=== PATIENT | female | born 1965 | race Caucasian/White ===

== ENCOUNTER → 2021-03-18 10:56 | Outpatient (BNVA) | payer OTHER, SELFPAY | PROVIDERS: PCP Internal Medicine; Visit Provider Internal Medicine Pulmonary Disease | DX: D86.9 Sarcoidosis, unspecified (principal); J45.909 Unspecified asthma, uncomplicated | CPT/HCPCS: 99202 ==

== ENCOUNTER 2021-03-26 09:29 | Outpatient (REF) | payer OTHER, SELFPAY ==
[2021-03-26 10:52] LABS: Alanine Aminotransferase 32 U/L (0-31); Albumin Level 4.2 g/dL (3.5-5.0); Alkaline Phosphatase 134 U/L (39-117); Anion Gap 12 (12-20); Aspartate Amino Transferase 20 U/L (5-31); Bilirubin Total 0.4 mg/dL (0.0-1.0); Blood Urea Nitrogen 10 mg/dL (9-16); Calcium 9.5 mg/dL (8.4-10.2); Carbon Dioxide 26 mmol/L (22-29); Chloride 102 mmol/L (96-108); Estimated Glomerular Filt Rate 51; Glucose Random 254 mg/dL (60-115); Potassium 3.9 mmol/L (3.3-5.1); Sodium 136 mmol/L (135-145)
--- NOTE | 2021-03-26 17:38 | PFT_ITS ---
INDICATION: Dyspnea. SPIROMETRY: FEV1 to FVC 86% with an FEV1 of 2.80 L, which is 99% predicted, and an FVC of 3.27 L, which is 90% predicted. No significant response to bronchodilators noted. Maximum voluntary ventilation 104% predicted. LUNG VOLUMES: Total lung capacity 103% predicted and the expiratory reserve volume of 90% predicted. DIFFUSION CAPACITY: DLCO 72% predicted. COMPARISONS: None. INTERPRETATION: No obstructive nor restrictive ventilatory defects identified. No significant response to bronchodilators noted. Normal maximum voluntary ventilation. Lung volumes are normal except for decrease in the expiratory reserve volume secondary to an elevated BMI. There is also a mild diffusion impairment. Otherwise, should correct for hemoglobin. Clinical correlation warranted. Brent Young MD MR/MODL / [id number]
== END 2021-03-26 09:30 | disposition home or self-care (01) ==
LOC: HO.RESP 09:29
PROVIDERS: PCP Internal Medicine; Visit Provider Internal Medicine Pulmonary Disease
DX: J45.909 Unspecified asthma, uncomplicated (principal); D86.9 Sarcoidosis, unspecified
CPT/HCPCS: 36415; 80053; 94060; 94727; 94729

== ENCOUNTER → 2021-04-16 10:40 | Outpatient (BNVA) | payer OTHER, SELFPAY | PROVIDERS: PCP Internal Medicine; Visit Provider Internal Medicine Pulmonary Disease | DX: D86.9 Sarcoidosis, unspecified (principal); J45.909 Unspecified asthma, uncomplicated | CPT/HCPCS: 99212 ==

== ENCOUNTER → 2021-09-29 10:10 | Outpatient (BNVA) | payer OTHER, SELFPAY | PROVIDERS: PCP Internal Medicine; Visit Provider Internal Medicine Pulmonary Disease | DX: J45.909 Unspecified asthma, uncomplicated (principal); D86.9 Sarcoidosis, unspecified | CPT/HCPCS: 99212 ==

== ENCOUNTER 2022-03-26 13:43 | Outpatient (REF) | payer OTHER, SELFPAY ==
[2022-03-26 15:47] LABS: Alanine Aminotransferase 64 U/L (0-31); Albumin Level 4.4 g/dL (3.5-5.0); Alkaline Phosphatase 188 U/L (39-117); Anion Gap 18 (12-20); Aspartate Amino Transferase 36 U/L (5-31); Bilirubin Total 0.3 mg/dL (0.0-1.0); Blood Urea Nitrogen 15 mg/dL (9-16); Calcium 9.8 mg/dL (8.4-10.2); Carbon Dioxide 20 mmol/L (22-29); Chloride 103 mmol/L (96-108); Estimated Glomerular Filt Rate 47; Glucose Random 373 mg/dL (60-115); Potassium 4.4 mmol/L (3.3-5.1); Sodium 137 mmol/L (135-145); Total Protein 7.2 g/dL (6.5-8.0)
== END 2022-03-26 13:44 | disposition home or self-care (01) ==
LOC: HO.LAB 13:43
PROVIDERS: Visit Provider Internal Medicine Pulmonary Disease
DX: D86.9 Sarcoidosis, unspecified (principal)
CPT/HCPCS: 36415; 80053

== ENCOUNTER → 2022-04-26 11:40 | Outpatient (BNVA) | payer OTHER, SELFPAY | PROVIDERS: PCP Internal Medicine; Visit Provider Internal Medicine Pulmonary Disease | DX: D86.9 Sarcoidosis, unspecified (principal); J45.909 Unspecified asthma, uncomplicated; J30.9 Allergic rhinitis, unspecified; Z79.899 Other long term (current) drug therapy | CPT/HCPCS: 99212 ==

== ENCOUNTER 2022-05-03 13:53 | Outpatient (REF) | payer OTHER, SELFPAY | END 2022-05-03 13:54 | disposition home or self-care (01) | LOC: HO.XRAY 13:53 | PROVIDERS: PCP Internal Medicine; Visit Provider Internal Medicine Pulmonary Disease | DX: S29.8XXA Other specified injuries of thorax, initial encounter (principal) | CPT/HCPCS: 71101 ==

== ENCOUNTER → 2022-09-22 15:33 | Outpatient (BNVA) | payer OTHER, SELFPAY | PROVIDERS: PCP Internal Medicine; Visit Provider Internal Medicine Pulmonary Disease | DX: D86.9 Sarcoidosis, unspecified (principal); J45.909 Unspecified asthma, uncomplicated | CPT/HCPCS: 99212 ==

== ENCOUNTER 2023-01-25 11:18 | Outpatient (AMB) | payer OTHER, SELFPAY ==
[2023-01-25 11:29] VITALS: BP 110/82; PULSE 93; O2SAT 96; BMI 32.0
--- NOTE | 2023-01-25 11:29 | MHC.OFFVIS ---
Intake Vital Signs 01/25/23 11:29 Height 5 ft 6 in Weight 198 lb 6.656 oz BMI 32.0 BP 110/82 Blood Pressure Location Lt brachial Position Sitting Pulse 93 Pulse Source Doppler Pulse Oximetry (%) 96 Oxygen Delivery Method Room Air Intake Visit Reasons: Sarcoidosis Allergies onion Allergy (Unknown, Verified 01/25/23 11:32) Unknown HPI Sarcoidosis HPI Details 57-year-old lady with underlying history of asthma previously seen by Dr. Murry, now followed for recent diagnosis of sarcoidosis on mediastinoscopy and mediastinal lymph node biopsy.? Patient continues on Breo Spiriva and albuterol MDI with good control of underlying symptoms. She denies recent exacerbations. She does complain bronchitic symptoms for the last 3 days symptomatic with cough productive of mucus. Review of Systems Const Denies daytime sleepiness, Denies excessive sweating, Denies fatigue, Denies fever(s), Denies lethargy, Denies malaise, Denies night sweats, Denies snoring and Denies weight loss Eyes Denies blurry vision and Denies itchy eyes ENT Denies nasal congestion, Denies post nasal drip, Denies sinus pain, Denies sinus pressure and Denies other ( Thrush) Card Denies chest pain, Denies pedal edema, Denies dyspnea, Denies orthopnea and Denies paroxysmal nocturnal dyspnea Resp Reports cough, Denies hemoptysis, Reports excessive phlegm production, Denies dyspnea, Denies snoring and Denies wheezing GI Denies abdominal pain and Denies heartburn Musc Denies myalgias, Denies arthralgias and Denies joint swelling Skin/Breast Denies rash Neuro Denies memory loss and Denies seizure-like activity Psych Denies abnormal sleep pattern, Denies anxiety and Denies memory loss Endo Denies excessive sweating, Denies fatigue and Denies heat intolerance Nacho/Lymph Denies easy bruising Aller/Immun Denies itchy eyes, Denies seasonal rhinorrhea and Denies wheezing Physical Exam Vital Signs: Last Vital Signs Pulse 93 01/25/23 11:29 BP 110/82 01/25/23 11:29 Pulse Ox 96 01/25/23 11:29 Oxygen Delivery Method Room Air 01/25/23 11:29 BMI result Body Mass Index 32.0 Const General: no acute distress and alert Nutritional Appearance: not obese Orientation/consciousness: Other orientation findings ( oriented) HEENT Head: Yes atraumatic Eyes General: appearance normal, both eyes and all related structures Sclerae: sclerae normal EOM: EOMs intact bilaterally Neck Neck: Yes supple Lymphatic: no lymphadenopathy noted Resp Effort & Inspection: normal respiratory effort and no use of accessory muscles Auscultation: clear to auscultation bilaterally Cardio Rate: regular rate Rhythm: regular rhythm Heart sounds: no gallops, no murmurs and no rubs Skin General skin exam: other ( warm) Extrem General: No clubbing, No cyanosis and No edema Assessment & Plan Assessment & Plan (1) Sarcoidosis: Code(s): D86.9 - Sarcoidosis, unspecified Plan: No recent exacerbations. Will obtain baseline laboratory studies. (2) Asthma: Code(s): J45.909 - Unspecified asthma, uncomplicated Plan: Well controlled on Breo, Spiriva, and albuterol MDI. Continue current regimen. Orders: Orders Liver Panel Today D86.9 - Sarcoidosis, unspecified Basic Metabolic Panel Today D86.9 - Sarcoidosis, unspecified Coding Level of Care Code Est Pt Level 4 (05752) Diagnoses Sarcoidosis D86.9 Asthma J45.909
== END 2023-01-25 11:49 | disposition home or self-care (01) ==
PROVIDERS: PCP Internal Medicine; Visit Provider Internal Medicine Pulmonary Disease
DX: D86.9 Sarcoidosis, unspecified (principal); J45.909 Unspecified asthma, uncomplicated
CPT/HCPCS: 99214

== ENCOUNTER → 2023-01-25 11:18 | Outpatient (BNVA) | payer OTHER, SELFPAY | PROVIDERS: PCP Internal Medicine; Visit Provider Internal Medicine Pulmonary Disease | DX: D86.9 Sarcoidosis, unspecified (principal); J45.909 Unspecified asthma, uncomplicated; Z79.899 Other long term (current) drug therapy | CPT/HCPCS: 99212 ==

== ENCOUNTER 2023-06-28 11:37 | Outpatient (REF) | payer OTHER, SELFPAY ==
[2023-06-28 12:43] LABS: Alanine Aminotransferase 34 U/L (0-31); Albumin Level 4.3 g/dL (3.5-5.0); Alkaline Phosphatase 129 U/L (39-117); Anion Gap 14 (12-20); Aspartate Amino Transferase 21 U/L (5-31); Bilirubin Direct 0.2 mg/dL (0.0-0.5); Bilirubin Total 0.4 mg/dL (0.0-1.0); Blood Urea Nitrogen 9 mg/dL (9-16); Calcium 10.6 mg/dL (8.4-10.2); Carbon Dioxide 22 mmol/L (22-29); Chloride 108 mmol/L (96-108); Estimated Glomerular Filt Rate > 60; Glucose Random 260 mg/dL (60-115); Potassium 4.2 mmol/L (3.3-5.1); Sodium 140 mmol/L (135-145); Total Protein 7.4 g/dL (6.5-8.0)
== END 2023-06-28 11:38 | disposition home or self-care (01) ==
LOC: HO.LAB 11:37
PROVIDERS: PCP Internal Medicine; Visit Provider Internal Medicine Pulmonary Disease
DX: D86.9 Sarcoidosis, unspecified (principal)
CPT/HCPCS: 36415; 80048; 80076

== ENCOUNTER 2023-07-29 10:54 | Outpatient (REF) | payer OTHER, SELFPAY ==
[2023-07-29 12:56] LABS: Anion Gap 13 (12-20); Blood Urea Nitrogen 10 mg/dL (9-16); Calcium 9.4 mg/dL (8.4-10.2); Carbon Dioxide 23 mmol/L (22-29); Chloride 109 mmol/L (96-108); Estimated Glomerular Filt Rate > 60; Glucose Random 214 mg/dL (60-115); Potassium 3.8 mmol/L (3.3-5.1); Sodium 141 mmol/L (135-145)
== END 2023-07-29 10:55 | disposition home or self-care (01) ==
LOC: HO.LAB 10:54
PROVIDERS: PCP Internal Medicine; Visit Provider Internal Medicine Pulmonary Disease
DX: D86.9 Sarcoidosis, unspecified (principal); J30.9 Allergic rhinitis, unspecified; J45.909 Unspecified asthma, uncomplicated
CPT/HCPCS: 36415; 80048; 99212

== ENCOUNTER 2023-07-29 10:54 | Outpatient (AMB) | payer OTHER, SELFPAY ==
[2023-07-29 10:57] VITALS: BP 111/77; PULSE 101; O2SAT 86; BMI 31.6
--- NOTE | 2023-07-29 10:57 | MHC.OFFVIS ---
Intake Vital Signs 07/29/23 10:57 Height 5 ft 6 in Weight 196 lb BMI 31.6 BP 111/77 Blood Pressure Location Rt brachial Position Sitting Pulse 101 H Pulse Source Doppler Pulse Oximetry (%) 86 L Oxygen Delivery Method Room Air Intake Visit Reasons: Sarcoidosis Allergies onion Allergy (Unknown, Verified 07/29/23 11:02) Unknown HPI Sarcoidosis HPI Details 57-year-old lady with underlying history of asthma previously seen by Dr. Murry, now followed for recent diagnosis of sarcoidosis on mediastinoscopy and mediastinal lymph node biopsy.? Patient continues on Breo, Spiriva, and albuterol MDI with good control of underlying symptoms. On her last BNP her calcium is slightly elevated. She is also complaining of mild bronchitic symptoms. Review of Systems Const Denies daytime sleepiness, Denies excessive sweating, Denies fatigue, Denies fever(s), Denies lethargy, Denies malaise, Denies night sweats, Denies snoring and Denies weight loss Eyes Denies blurry vision and Denies itchy eyes ENT Denies nasal congestion, Denies post nasal drip, Denies sinus pain, Denies sinus pressure and Denies other ( Thrush) Card Denies chest pain, Denies pedal edema, Denies dyspnea, Denies orthopnea and Denies paroxysmal nocturnal dyspnea Resp Reports cough, Denies hemoptysis, Reports excessive phlegm production, Denies dyspnea, Denies snoring and Denies wheezing GI Denies abdominal pain and Denies heartburn Musc Denies myalgias, Denies arthralgias and Denies joint swelling Skin/Breast Denies rash Neuro Denies memory loss and Denies seizure-like activity Psych Denies abnormal sleep pattern, Denies anxiety and Denies memory loss Endo Denies excessive sweating, Denies fatigue and Denies heat intolerance Nacho/Lymph Denies easy bruising Aller/Immun Denies itchy eyes, Denies seasonal rhinorrhea and Denies wheezing Physical Exam Vital Signs: Last Vital Signs Pulse 101 H 07/29/23 10:57 BP 111/77 07/29/23 10:57 Pulse Ox 86 L 07/29/23 10:57 Oxygen Delivery Method Room Air 07/29/23 10:57 BMI result Body Mass Index 31.6 Const General: no acute distress and alert Nutritional Appearance: not obese Orientation/consciousness: Other orientation findings ( oriented) HEENT Head: Yes atraumatic Eyes General: appearance normal, both eyes and all related structures Sclerae: sclerae normal EOM: EOMs intact bilaterally Neck Neck: Yes supple Lymphatic: no lymphadenopathy noted Resp Effort & Inspection: normal respiratory effort and no use of accessory muscles Auscultation: clear to auscultation bilaterally Cardio Rate: regular rate Rhythm: regular rhythm Heart sounds: no gallops, no murmurs and no rubs Skin General skin exam: other ( warm) Extrem General: No clubbing, No cyanosis and No edema Assessment & Plan Assessment & Plan (1) Asthma: Code(s): J45.909 - Unspecified asthma, uncomplicated Plan: Baseline well controlled on Breo, Spiriva, and albuterol MDI. Continue current regimen. Will treat bronchitic symptoms with a course of azithromycin. (2) Sarcoidosis: Code(s): D86.9 - Sarcoidosis, unspecified Plan: Mildly elevated calcium on last BMP. Will repeat BMP, if still elevated, will consider prednisone course. (3) Allergic rhinitis: Code(s): J30.9 - Allergic rhinitis, unspecified Plan: No recent exacerbations. Continue on as needed Flonase. Orders: Orders Basic Metabolic Panel Today D86.9 - Sarcoidosis, unspecified Medications: New azithromycin For 250 mg dose pack: take 500 mg today (day 1), then 250 mg for 4 days (days 2-5) PO 6 tabs 0RF D86.9 - Sarcoidosis, unspecified Discontinued azithromycin Discontinued Reason: Doctor's Order For 250 mg dose pack: take 500 mg today (day 1), then 250 mg for 4 days (days 2-5) PO 6 tabs 0RF D86.9 - Sarcoidosis, unspecified Coding Level of Care Code Est Pt Level 4 (38609) Diagnoses Asthma J45.909 Sarcoidosis D86.9 Allergic rhinitis J30.9
== END 2023-07-29 11:19 | disposition home or self-care (01) ==
PROVIDERS: PCP Internal Medicine; Visit Provider Internal Medicine Pulmonary Disease
DX: J45.909 Unspecified asthma, uncomplicated (principal); D86.9 Sarcoidosis, unspecified; J30.9 Allergic rhinitis, unspecified
CPT/HCPCS: 99214

== ENCOUNTER 2023-12-07 11:02 | Outpatient (AMB) | payer OTHER, SELFPAY ==
[2023-12-07 11:04] VITALS: BP 108/78; PULSE 85; O2SAT 98; BMI 30.7
--- NOTE | 2023-12-07 11:04 | MHC.OFFVIS ---
Vital Signs 12/07/23 11:04 Height 5 ft 6 in Weight 190 lb 0.108 oz BMI 30.7 BP 108/78 Blood Pressure Location Lt brachial Position Sitting Pulse 85 Pulse Source Doppler Pulse Oximetry (%) 98 Oxygen Delivery Method Room Air Intake Visit Reasons: Sarcoidosis Allergies onion Allergy (Unknown, Verified 07/29/23 11:02) Unknown HPI HPI Sarcoidosis: Details: 58-year-old lady with underlying history of asthma previously seen by Dr. Murry, now followed for diagnosis of sarcoidosis on mediastinoscopy and mediastinal lymph node biopsy.? Patient continues on Breo, Spiriva, and albuterol MDI with good control of underlying symptoms. On her last BNP her calcium is slightly elevated, however did came down on the repeat testing. She is denying any acute exacerbations. Review of Systems Const Denies daytime sleepiness, Denies excessive sweating, Denies fatigue, Denies fever(s), Denies lethargy, Denies malaise, Denies night sweats, Denies snoring and Denies weight loss Eyes Denies blurry vision and Denies itchy eyes ENT Denies nasal congestion, Denies post nasal drip, Denies sinus pain, Denies sinus pressure and Denies other ( Thrush) Card Denies chest pain, Denies pedal edema, Denies dyspnea, Denies orthopnea and Denies paroxysmal nocturnal dyspnea Resp Denies cough, Denies hemoptysis, Denies excessive phlegm production, Denies dyspnea, Denies snoring and Denies wheezing GI Denies heartburn Musc Denies myalgias, Denies arthralgias and Denies joint swelling Skin/Breast Denies rash Neuro Denies memory loss and Denies seizure-like activity Psych Denies abnormal sleep pattern, Denies anxiety and Denies memory loss Endo Denies excessive sweating, Denies fatigue and Denies heat intolerance Nacho/Lymph Denies easy bruising Aller/Immun Denies itchy eyes, Denies seasonal rhinorrhea and Denies wheezing Physical Exam Vital Signs: Last Vital Signs Pulse 85 12/07/23 11:04 BP 108/78 12/07/23 11:04 Pulse Ox 98 12/07/23 11:04 Oxygen Delivery Method Room Air 12/07/23 11:04 BMI result Body Mass Index 30.7 Const General: no acute distress and alert Nutritional Appearance: not obese Orientation/consciousness: Other orientation findings ( oriented) HEENT Head: Yes atraumatic Eyes General: appearance normal, both eyes and all related structures Sclerae: sclerae normal EOM: EOMs intact bilaterally Neck Neck: Yes supple Lymphatic: no lymphadenopathy noted Resp Effort & Inspection: normal respiratory effort and no use of accessory muscles Auscultation: clear to auscultation bilaterally Cardio Rate: regular rate Rhythm: regular rhythm Heart sounds: no gallops, no murmurs and no rubs Skin General skin exam: other ( warm) Extrem General: No clubbing, No cyanosis and No edema Assessment & Plan Assessment & Plan (1) Asthma: Code(s): J45.909 - Unspecified asthma, uncomplicated Category: Medical Plan: Well controlled on Breo, Spiriva, and albuterol MDI. Continue current regimen. (2) Sarcoidosis: Code(s): D86.9 - Sarcoidosis, unspecified Category: Medical Plan: Initially elevated calcium rechecked and repeat value is normal. Continue to monitor clinically. Coding Level of Care Code Est Pt Level 4 (65498) Diagnoses Asthma J45.909 Sarcoidosis D86.9
== END 2023-12-07 11:28 | disposition home or self-care (01) ==
PROVIDERS: PCP Internal Medicine; Visit Provider Internal Medicine Pulmonary Disease
DX: J45.909 Unspecified asthma, uncomplicated (principal); D86.9 Sarcoidosis, unspecified
CPT/HCPCS: 99214

== ENCOUNTER → 2023-12-07 11:02 | Outpatient (BNVA) | payer OTHER, SELFPAY | PROVIDERS: PCP Internal Medicine; Visit Provider Internal Medicine Pulmonary Disease | DX: J45.909 Unspecified asthma, uncomplicated (principal); D86.9 Sarcoidosis, unspecified | CPT/HCPCS: 99212 ==

== ENCOUNTER 2024-06-12 10:48 | Outpatient (AMB) | payer MEDICAID, SELFPAY ==
[2024-06-12 10:57] VITALS: BP 98/60; PULSE 88; O2SAT 95; BMI 32.9
--- NOTE | 2024-06-12 10:57 | MHC.OFFVIS ---
Vital Signs 06/12/24 10:57 Height 5 ft 6 in Weight 204 lb 2.115 oz BMI 32.9 BP 98/60 Blood Pressure Location Rt brachial Position Sitting Pulse 88 Pulse Source Doppler Pulse Oximetry (%) 95 Oxygen Delivery Method Room Air Intake Visit Reasons: Sarcoidosis Allergies onion Allergy (Unknown, Verified 06/12/24 11:05) Unknown HPI HPI Sarcoidosis: Details: 58-year-old lady with underlying history of asthma previously seen by Dr. Murry, now followed for diagnosis of sarcoidosis on mediastinoscopy and mediastinal lymph node biopsy.? Patient continues on Breo, Spiriva, and albuterol MDI with good control of underlying symptoms. Patient denies recent exacerbations. Review of Systems Const Denies daytime sleepiness, Denies excessive sweating, Denies fatigue, Denies fever(s), Denies lethargy, Denies malaise, Denies night sweats, Denies snoring and Denies weight loss Eyes Denies blurry vision and Denies itchy eyes ENT Denies nasal congestion, Denies post nasal drip, Denies sinus pain, Denies sinus pressure and Denies other ( Thrush) Card Denies chest pain, Denies pedal edema, Denies dyspnea, Denies orthopnea and Denies paroxysmal nocturnal dyspnea Resp Denies cough, Denies hemoptysis, Denies excessive phlegm production, Denies dyspnea, Denies snoring and Denies wheezing GI Denies abdominal pain and Denies heartburn Musc Denies myalgias, Denies arthralgias and Denies joint swelling Skin/Breast Denies rash Neuro Denies memory loss and Denies seizure-like activity Psych Denies abnormal sleep pattern, Denies anxiety and Denies memory loss Endo Denies excessive sweating, Denies fatigue and Denies heat intolerance Nacho/Lymph Denies easy bruising Aller/Immun Denies itchy eyes, Denies seasonal rhinorrhea and Denies wheezing Physical Exam Vital Signs: Last Vital Signs Pulse 88 06/12/24 10:57 BP 98/60 06/12/24 10:57 Pulse Ox 95 06/12/24 10:57 Oxygen Delivery Method Room Air 06/12/24 10:57 BMI result Body Mass Index 32.9 Const General: no acute distress and alert Nutritional Appearance: obese Orientation/consciousness: Other orientation findings ( oriented) HEENT Head: Yes atraumatic Eyes General: appearance normal, both eyes and all related structures Sclerae: sclerae normal EOM: EOMs intact bilaterally Neck Neck: Yes supple Lymphatic: no lymphadenopathy noted Resp Effort & Inspection: normal respiratory effort and no use of accessory muscles Auscultation: clear to auscultation bilaterally Cardio Rate: regular rate Rhythm: regular rhythm Heart sounds: no gallops, no murmurs and no rubs Skin General skin exam: other ( warm) Extrem General: No clubbing, No cyanosis and No edema Assessment & Plan Assessment & Plan (1) Asthma: Code(s): J45.909 - Unspecified asthma, uncomplicated Category: Medical Plan: Well controlled on current regimen Spiriva, Breo, and albuterol MDI. Continue current regimen. (2) Sarcoidosis: Code(s): D86.9 - Sarcoidosis, unspecified Category: Medical Plan: Hypercalcemia resolved, otherwise clinically asymptomatic. Continue to monitor clinically. Coding Level of Care Code Est Pt Level 4 (96478) Diagnoses Asthma J45.909 Sarcoidosis D86.9
--- OUTSIDE RECORDS SUMMARY | 2024-06-12 11:55 | XMS_ITS | Data Portability ---
Author Organization [facility] [employer] [facility], Main Office Address [address] [place] [address] Care Team Providers Care Twisting Frame Fixer Name Role Phone [facility] OTHER Assessment No assessment recorded. Plan of Treatment Reminders Order Date Submit Date Provider Last Modified By Organization Details Last Modified Time Details Appointments None record ed. Lab None record ed. Referral None record ed. Procedures None record ed. Surgeries None record ed. Imaging None record ed. Medication Orders None record ed. Patient TargetsNo targets recorded. Patient InstructionsNo instructions recorded. Reason for Referral None Reported. Problems Name Problem SNOMED Code Status Onset Date Resolution Date Notes Provider Name and Address Organization Details Recorded Time Chronic obstructiv e pulmonary disease 20479650 Active 2024 CHAKA BELTRE [address] , [address], [place], [address] , [facility] [employer] [facility] 5 15:25:46 Asthma 348062979 Active 2024 CHAKA BELTRE [address], [place], [address] , [facility] [employer] 5 15:25:54 Diabetes mellitus 46039955 Active 2024 AURY DAS [facility] [address], [place], [address] , [facility] [employer] 5 15:26:12 Hyperlipid emia 32410244 Active 2024 [address] BEL[address]P [address], [place], [address] , [facility] [employer] 5 15:26:19 Neuropathy 494955562 Active 2024 CHAKA BELTRE [address], [place], [address] , [facility] 5 15:27:11 Essential tremor 833083160 Active 2024 CHAKA BELTRE [address], [address], [place], [address] , [facility] 5 15:27:41 Post-luz marina ectomy syndrome 76999973 Active 2024 CHAKA BELTRE [address], [address], [place], [address] , [facility] 5 15:29:52 Neuralgia 27398310 Active 2024 CHAKA BELTRE [address], [address], [place], [address] , [facility] 5 15:33:29 Mixed anxiety and depressive disorder 696647586 Active 2024 CHAKA BELTRE [address], [address], [place], [address] , [facility] 5 15:36:49 Diarrhea 19048597 Active 2023 Not Available [facility] 5 09:48:27 Recurrent major depression 82808027 Active 2023 Not Available [facility] 5 09:48:27 Type 2 diabetes mellitus without complicati on 531959813 Active 2023 Not Available [facility] 5 09:48:28 Anxiety disorder 918236706 Active 2023 Not Available [facility] 5 09:48:29 Obesity 941578129 Completed 202306/07/2024 Not Available [facility] 5 09:48:31 Primary insomnia 6170888 Active 2023 Not Available [facility] 5 09:48:31 Obesity 131772236 Active 2023 Not Available [facility] 5 09:48:32 Muscle weakness 49401745 Active 2023 Not Available [facility] 5 09:48:32 Difficulty walking 076877804 Active 2023 Not Available [facility] 5 09:48:32 Uncomplica charley asthma 588039277 Active 2023 Not Available [facility] 5 09:48:33 Disorder of nervous system due to type 2 diabetes mellitus 932515453 Active 2023 Not Available [facility] 5 09:48:33 Depressive disorder 78392012 Active 2023 Not Available [facility] 5 09:48:34 Disease caused by Coronaviri hermelinda 74931006 Active 2023 Not Available [facility] 5 09:48:35 Problem Notes None recorded. Medical Equipment None Reported. Allergies Allergen ID Allergen Name Allergen Category Reaction Reaction Severity Criticality Documentation Date Start Date Code Code System Note Provider Name and Address Organization Details Recorded Time [id number] 2824e onion extract food,medi cation Not available Not available Not available 05/25/2024 94519 69 RxNorm Not Available Not Available Not Available Medications Name Sig Start Date Stop Date Status Note LastModified by Organization Details LastModified Time atorvastati n 40 mg tablet Give 1 tablet by mouth one time a day 2023 active Not Available Not Available Not Avai lable primidone 50 mg tablet Give 1 tablet by mouth three times a day 2023 active Not Available Not Available Not Avai lable gabapentin 600 mg tablet Give 2 tablet by mouth three times a day for neuropath y give 2 tabs to equal 1200mg 2023 active Not Available Not Available Not Avai lable albuterol sulfate 1.25 mg/3 mL solution for nebulizatio n 1 vial inhale orally via nebulizer every 6 hours as needed for Wheeze 2023 active Not Available Not Available Not Avai lable clonazepam 0.5 mg tablet Give 1 tablet by mouth at bedtime May cause drowsines s, avoid alcohol 2024 active Not Available Not Available Not Avai lable Diphedryl Allergy 25 mg tablet Give 1 tablet by mouth every 24 hours as needed for ALLERGIES 2023 active Not Available Not Available Not Avai lable Non-Aspirin Extra Strength 500 mg tablet Give 2 tablet by mouth every 6 hours as needed for Mild Pain Do not exceed 3 grams in 24 hours.(To nicolette Dose 1000mg) AND Give 2 tablet by mouth every 6 hours as needed for Elevated Temperatu re > 100.1 Do not exceed 3 grams in 24 hours.(To nicolette Dose 1000mg) 2023 active Not Available Not Available Not Avai lable Lamictal 25 mg tablet Give 1 tablet by mouth two times a day for Depressio n 2024 active Not Available Not Available Not Avai lable Advil 200 mg tablet Give 2 tablet by mouth every 6 hours as needed for pain 2023 active Not Available Not Available Not Avai lable albuterol sulfate HFA 90 mcg/actuati on aerosol inhaler 2 puff inhale orally every 4 hours as needed for Bronchosp asm 1 DOSE ONLY 06/04 completed Not Available Not Available Not Available Wellbutrin XL 300 mg 24 hr tablet, extended release Give 300 mg by mouth one time a day 2023 active Not Available Not Available Not Avai lable topiramate 50 mg tablet Give 1 tablet by mouth two times a day 2023 active Not Available Not Available Not Avai lable duloxetine 60 mg capsule,del ayed release Give 1 capsule by mouth one time a day 2023 active Not Available Not Available Not Avai lable epinephrine 0.3 mg/0.3 mL injection syringe Inject 0.3 ml intramusc ularly as needed for ANAPHYLAX IS ADMINISTE R X1 NEEDED 2023 active Not Available Not Available Not Avai lable Comfort Pac-tizanid ine 4 mg tablet and topical gel kit Give 1 tablet by mouth three times a day 2023 active Not Available Not Available Not Avai lable sodium phosphates 19 gram-7 gram/197 mL enema Insert 1 unit rectally every 24 hours as needed for Constipat ion Use only if Bisacodyl Supposito ry is ineffecti ve 2023 active Not Available Not Available Not Avai lable Jardiance 10 mg tablet Give 1 tablet by mouth one time a day 2023 active Not Available Not Available Not Avai lable Trulicity 1.5 mg/0.5 mL subcutaneou s pen injector Inject 1.5 mg subcutane ously one time a day every Tue for diabetes 2024 active Not Available Not Available Not Avai lable Vitals Date Recorded Heart rate Respiratory rate Body temperature Systolic blood pressure Diastolic blood pressure Provider Name and Address Organization Details Last Updated DateTime 5 80 /min 18 /min 98 [degF] 130 mm[Hg] 68 mm[Hg] CHAKA BELTRE [address], [address], [place], [address] [place] - [facility] 5 16:41:36 Social History None recorded. Functional Status None recorded. Mental Status None recorded. Family History Nothing Reported. Medical History No medical history recorded. Gynecological HistoryNo gynecological history recorded. Obstetrics History GPAL:G 0 P 0 0 0 0 Past Encounters Encounter ID Performer Location Encounter Start Date Encounter Closed Date Diagnosis/Indication Diagnosis SNOMED-CT Code Diagnosis ICD10 Code Diagnosis Note [id number] CHAKA BELTRE [facility] [address] [place] [address] 05/25/2024 17:53:11 05/30/2024 08:06:36 Neuralgia 98047867 M79.2 Right occipital neuralgiaf /u with neurology prnadd cold compressed 15min a few times dailyconti nue topamax Chronic ob structive pulmonary disease 50221341 J44.9 Continue ProAir, albuterol nebulizer treatments , Spiriva Diabetes mellitus 064851 09 E11.9 Continue Trulicity, Jardiance, SSC Mixed anxi ety and depressive disorder 041711880 F41.8 continue Bupropion, Duloxetine ,Clonazepa m, lamictalla mictal recently increased to 50 mg BID pt reported sx associated with increased. Med decreased back to 25 mg BID, will monitor for resolution . Asthma 084367847 J45.90 9 albuterol prn Hyperlipidemia 26246305 E78.5 continue lipitorfol low labs Neuropathy 409156344 G62 .9 continue gabapentin , tizanidine Essential tremor 6520283 09 G25.0 continue primidone TID Post-luz marina ectomy syndrome 82637747 M96.1 see above meds. Health Concerns Section Related Observation LastModified by Organization Detai ls LastModified Time None Recorded Concern Status LastModified by Organization Details LastModified Time None Recorded Advance Directives Directive None Recorded Payers Encounter Date Sequence Insurance Name Policy Number Policy Pandya Covered Member ID Pandya Member ID Guarantor Name 05/25/2024 1 [place] [facility] Cali Rabago [id number] Cali Hima Notes Date Note Type Note Provider Name and Address Organization Details Recorded Time 05/25/2024 text/html This is a 58 yr old female seen for transition of care and acute rounding visit. she reports that she has been experience drowsiness and double vision in the setting of lamictal being increased. Patient admitted to facility for rehab 12/2023 after acute care stay for management of symptomatic COVID with deconditioning.she is alert and oriented and mainly independent with care, her stay has been prolonged due to housing. Goal is to return to the community once housing is secured. 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 CHAKA BELTRE [address] [facility] [address] [facility], [address], [place], [address], [facility] [employer] 05/29/2024 16:43:59 OBGyn Episode No OBEpisode recorded.
--- OUTSIDE RECORDS SUMMARY | 2024-06-12 11:55 | XMS_ITS | Clinical Summary ---
Author Organization 175 [facility] Address [address] [place] [address] Phone Care Team Providers Care Biology Internship Name Role Phone Romain Miranda MD Primary Care Provider [phone] Allergies Active Allergy Reactions Criticality Noted Date Comments Bee Venom Protein (Honey Bee) Anaphylaxis High 01/06 Onion Anaphylaxis High 08/30/2018 Medications Medication Sig Dispensed Refills Start Date End Date Status flash glucose scanning reader (FreeStyle Ana Cristina 2 [place]) misc 1 Device by Does not apply route daily. Active flash glucose sensor (FREESTYLE ANA CRISTINA 2 SENSOR MISC) 1 Device by Does not apply route every 14 days. Active FREESTYLE LANCETS MISC Three times a day to check sugars Active blood sugar diagnostic (FreeStyle Lite Strips) test strip 1 Strip by In Vitro route 3 times daily. Active blood-glucose meter kit Check sugars three times a day Active magnesium oxide (MAG-OX) 400 mg (241.3 elemental magnesium) tablet TAKE 1 TABLET BY MOUTH EVERY DAY Active acetaminophen (TYLENOL) 500 mg tablet Take 1 Tablet by mouth every 6 hours as needed for Pain. Active albuterol HFA (PROAIR HFA ; PROVENTIL HFA ; VENTOLIN HFA) 90 mcg/actuation inhaler Inhale 2 Puffs into the lungs every 4 hours as needed. Active atorvastatin (LIPITOR) 40 mg tablet TAKE 1 TABLET BY MOUTH EVERY DAY Active buPROPion SR (WELLBUTRIN SR) 150 mg 12 hr tablet Take 150 mg by mouth 2 Times Daily. Active cholecalciferol (VITAMIN D-3) 25 mcg (1,000 unit) tablet Take 1,000 Units by mouth daily. Active cholecalciferol (VITAMIN D-3) 25 mcg (1,000 unit) capsule Take 1,000 Units by mouth 2 Times Daily. Active clonazePAM (KlonoPIN) 1 mg tablet Take 1 Tablet by mouth daily. 1/2 tablet by mouth daily. Active diclofenac (VOLTAREN) 1 % topical gel Apply 4 g topically 2 times daily. Active dulaglutide (Trulicity) 3 mg/0.5 mL pen injector injection Inject 3 mg into the skin once a week. Active DULoxetine (CYMBALTA) [address] capsule Take 60 mg by mouth daily. Active EPINEPHrine (EpiPen 2-Ronnie) 0.3 mg/0.3 mL injection Inject 0.3 mL (0.3 mg total) into the thigh. 09/25/2023 Active fluticasone propionate (FLONASE) 50 mcg/actuation nasal spray 2 Sprays by Each Nare route daily. Active gabapentin (NEURONTIN) 600 mg tablet Take 2 Tablets by mouth 3 times daily. Active ondansetron ODT (ZOFRAN-ODT) 4 mg disintegrating tablet Take 1 Tablet by mouth every 8 hours as needed. Active primidone (MYSOLINE) 50 mg tablet Take 1 Tablet by mouth 2 times daily. Active tiotropium (Spiriva Respimat) 2.5 mcg/actuation inhalation spray Inhale 1 Puff into the lungs 2 times daily. Active tiZANidine (ZANAFLEX) 2 mg tablet Take 2 mg by mouth every 6 (six) hours as needed. Active topiramate (TOPAMAX) 50 mg tablet Take 1 tablet (50 mg total) by mouth. 07/08/2017 Active triamcinolone acetonide (KENALOG-40) 40 mg/mL injection 1 mL by Other route once for 1 dose. Active Jardiance 10 mg tablet 02/06/2024 Ac tive Active Problems Problem Noted Date Diagnosed Date Carpal tunnel syndrome of right wrist 04/10/2024 Occipital neuralgia of right side 03/30/2024 Assessment & Plan (03/30/2024 2:30 PM EST): Ms. Rabago describes neck pain with radiation up the back of her head, sometimes going all the way to the right eye. She has a right upper extremity tremor and is otherwise neurologically intact. She had reproduction of the neck pain and headache with palpation of the right skull base. The MRI of the cervical spine from [facility]. In February revealed evidence of her prior C5-6 and C6-7 anterior cervical fusions. She has mild degenerative changes in the mid and upper cervical spine without any significant stenosis. I think she is suffering with occipital neuralgia. I will refer her to Dr. 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 Jimenez, Obesity (BMI 30-39.9) 03/01/2023 Fibromyalgia 03/01/2023 Cervical radiculopathy 03/01/2023 Peripheral neuropathy 11/01/2017 Atypical squamous cell craft es of cervix undetermined significance favor benign 05/30/2013 Overview (02/28/2024): 07/2023 PAp ASS, neg HPV Per ASCCP RECOMMENDATION 3-year follow-up?? HPV-based screening at follow-up visit?? RISK 5 year risk of CIN3+ is 0.40%?? REFERENCES Obstructive sleep apnea 11/07/2012 Vitamin D deficiency 09/09/2011 Allergic rhinitis 07/23/2010 Encounters Date Type Department Care Team Description 04/23/2024 Telephone [facility] [address] [address] Analy Ramirez PA Neck Pain (Follow-up after right occipital nerve block 04/20/2024) 04/11/2024 Telephone [facility] 175 [facility] [address] [place] [phone] Sherita Hanson MA Appointment (Physiatry appointment scheduled for 04/20/24 @ 10:45am at [facility] Physiatry/Dr. Rodriges. Pt aware) 04/10/2024 11:30 AM EST Office Visit Orthopedic Surgery - [place] [address] [facility] [address] [place] [address] Digna Butler MD Carpal tunnel syndrome of right wrist (Primary Dx) 04/10/2024 Lab Requisition [facility] - Main Lab [address] [place] [address] Claudia Sterling MD Hyperlipidemia, unspecified 04/02/2024 Lab Requisition [facility] - [facility] Lab [address] [place] [address] Claudia Sterling MD Type 2 diabetes mellitus without complications ([facility]) 03/30/2024 1:00 PM EST Office Visit Neurosurgery [facility] [address] [facility] [address] [place] [address] Guru Harris PA Occipital neuralgia of right side (Primary Dx) from Last 3 Months Immunizations Name Administration Dates Next Due Influenza Quadravalent, MDCK , 0.5ml, preservative free (Flucelvax) 6mo and older 03/01/2023 [employer] SARS-CoV-2 COVID-19, mRNA, LNP-S, preservative free 12/30/2020,12/09/2020 Pneumococcal polysaccharide 23 valent (Pneumovax 23) 2yo and older 06/01/2012 Td Tetanus diptheria (Tdvax) 7yo and older 05/20 Tdap Tetanus diptheria acell ular pertussis (Boostrix; Adacel) 7yo and older 06/01/2012 Surgical History Surgery Date Site/Laterality Comments TONSILLECTOMY OTHER SURGICAL HISTORY ovarian cystectomy OTHER SURGICAL HISTORY C5-6, C6-7 ACDF 2005 & 2009, Dr. 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 OVARIAN CYST REMOVAL Medical History Medical History Date Comments Asthma DX:Asthma COPD (chronic obstructive pu lmonary disease) ([facility]) DX:COPD (chronic obstructive pulmonary disease) ([facility]) Depression DX:Depression Morbid obesity with BMI of 4 0.0-44.9, adult ([facility]) 06/21/2018 DX:Morbid obesity with BMI o f 40.0-44.9, adult ([facility]) Allergic rhinitis 07/23/2010 DX:Allergic rh initis Atypical squamous cell craft es of cervix undetermined significance favor benign 05/30/2013 DX:Atypical squamous cell ch anges of cervix undetermined significance favor benign Obstructive sleep apnea 11/07/2012 DX:Obstr uctive sleep apnea Peripheral neuropathy 11/01/2017 DX:Periphe ral neuropathy Postlaminectomy syndrome, ce rvical region 10/01/2010 DX:Postlaminectomy syndrome, cervical region Type 2 diabetes mellitus wit h neurological manifestations ([facility]) DX:Type 2 diabet es mellitus with neurological manifestations ([facility]) Vitamin D deficiency 09/09/2011 DX:Vitamin D deficiency Malignant neoplasm of left b reast in female, estrogen receptor positive ([facility]) 08/30/2018 DX:Malignant neoplasm of lef t breast in female, estrogen receptor positive ([facility]) History of cancer of left breast 08/30/2018 DX:History of cancer of left breast; COMMENT: 12/2016 S/p lumpectomy and radiation, no hormonal treatment was recommended; Estrogen receptor + Family History Medical History Relation Name Comments Breast cancer Aunt maternal Coronary artery disease Brother 1 Cirrhosis Brother 2 Other: brain tumor Mother Diabetes Sister 1 No Known Problems Sister 2 No Known Problems Sister 3 Brain cancer Uncle maternal Relation Name Status Comments Aunt maternal maternal brst c a in her 60's Brother 1 Alive Brother 2 Alive Brother 3 Alive Brother 4 Alive Father Mother Sister 1 Alive Sister 2 Alive Sister 3 Alive Uncle maternal Social History Tobacco Use Types Packs/Day Years Used Date Smoking Tobacco: Never Smokeless Tobacco: Never Tobacco Cessation:Counseling Given: Not Answered Alcohol Use Standard Drinks/Week Comments Yes 0 (1 standard drink = 0.6 oz pur e alcohol) Sex and Gender Information Value Date Recorded Sex Assigned at Not on file Gender Identity Not on file Sexual Orientation Not on file Job Start Date Occupation Industry Not on file Not on file Not on file Obstetrics History Last Filed Vital Signs Vital Sign Reading Time Taken Comments Blood Pressure 98/74 12/20/2023 10:02 AM EDT Pulse 91 12/20/2023 10:02 AM EDT Temperature - - Respiratory Rate - - Oxygen Saturation - - Inhaled Oxygen Concentration - - Weight 90.7 kg (200 lb) 04/10/2024 11:39 AM EST Height 167.6 cm (5' 6 ) 04/10/2024 11:39 AM EST Body Mass Index 32.28 04/10/2024 11:39 AM EST Plan of Treatment Upcoming Encounters Date Type Department Care Team (Late st Contact Info) Description 06/18/2024 11:45 AM EST Office Visit Orthopedic Surgery - [place] 175 [facility] [address] [place] [address] Digna Butler MD 175 [facility] [address] [place] [address] Health Maintenance Due Date Last Done Comments Diabetes: Annual Foot Exam 10/29/1973 Diabetes: Annual Retina Eye Exam 10/29/1973 Pneumococcal Vaccine: Pediatrics (0 to 5 Years) and At-Risk Patients (6 to 64 Years) (2 of 2 - PCV) 06/01/2013 06/01/2012 Zoster Vaccines (1 of 2) 10/29/2013 COVID-19 Vaccine (3 - Pfizer risk series) 01/27/2021 12/30/2020, 12/09/2020 Colorectal Cancer Screening: Colonoscopy 04/24/2022 HIV Screening 04/24/2022 Social Influencers of Health Screening 04/24/2022 DTaP,Tdap,and Td Vaccines (3 - Td or Tdap) 06/01/2022 06/01/2012, 05/20/2008 RSV Immunization Patients 60+ Years Old (1 - Risk 60-74 years 1-dose series) 2023 Influenza Vaccine (#1) 2024 03/01/2023 Depression Screening 07/14/2024 07/15/2023 Diabetes: Annual Urine Albumin-Creatinine Ratio (uACR) 08/30/2024 08/31/2023 Diabetes: Blood Sugar Control Test (HGBA1C) 09/30/2024 04/02/2024, 08/31/2023 Diabetes: Annual GFR (Glomerular Filtration Rate) 04/02/2025 04/02/2024, 10/04/2023, 10/04/2023 Breast Cancer Screening 12/20/2025 12/21/19, 12/15/2022, 12/11/2021, Additional history exists Cervical Cancer Screening: HPV 07/14/2028 07/15/2023 Cholesterol Screening (Lipid Panel) 04/02/2029 04/02/2024, 08/31/2023 Hepatitis C Screening Completed 08/31/2023 HIB Vaccines Aged Out No longer eligi ble based on patient's age to complete this topic HPV Vaccines Aged Out No longer eligi ble based on patient's age to complete this topic Hepatitis A Vaccines Aged Out No long er eligible based on patient's age to complete this topic Hepatitis B Vaccines Aged Out No long er eligible based on patient's age to complete this topic IPV Vaccines Aged Out No longer eligi ble based on patient's age to complete this topic MMR Vaccines Aged Out No longer eligi ble based on patient's age to complete this topic Meningococcal ACWY Vaccine Aged Out N o longer eligible based on patient's age to complete this topic RSV Immunization Patients Under 20 months Aged Out No longer eligible based on patient's age to complete this topic Varicella Vaccines Aged Out No longer eligible based on patient's age to complete this topic Procedures Procedure Name Priority Date/Time Associated Diagnosis Comments VITAMIN D 25 HYDROXY Routine 04/10/2024 5:56 AM EST Hyperlipidemia, unspecified THYROID STIMULATING HORMONE Routine 04/10/2024 5:56 AM EST Hyperlipidemia, unspecified FOLATE Routine 04/10/2024 5:56 AM EST Hyperlipidemia, unspecified VITAMIN B12 Routine 04/10/2024 5:56 AM EST Hyperlipidemia, unspecified HEMOGLOBIN A1C Routine 04/02/2024 9:34 AM EST Type 2 diabetes mellitus without complications (CMS/HCC) LIPID PANEL WITH REFLEX TO DIRECT LDL Routine 04/02/2024 9:34 AM EST Type 2 diabetes mellitus without complications (CMS/HCC) BASIC METABOLIC PANEL Routine 04/02/2024 9:34 AM EST Type 2 diabetes mellitus without complications (CMS/HCC) COMPLETE BLOOD COUNT Routine 04/02/2024 9:34 AM EST Type 2 diabetes mellitus without complications (CMS/HCC) YASMINE SCREENING DIGITAL Routine 12/21/2023 3:40 PM EDT Encounter for screening mammogram for malignant neoplasm of breast HEPATITIS C SCREENING Routine 08/31/2023 HM URINE ALBUMIN CREATININE RATIO Routine 08/31/2023 HM HPV Routine 07/15/2023 HM DEPRESSION SCREENING Routine 07/15/2023 from Last 3 Months or Most Recently Relevant to Health Maintenance Results * Vitamin D 25 hydroxy (04/10/2024 5:56 AM EST) Vit D, 25-Hydroxy 43.5 30.0 - 80.0 ng/mL LAB CHEMISTRY METHOD 04/10/2024 10:20 AM EST [facility] Blood Venous blood specimen / Unknown Venipuncture / Unknown 04/10/2024 5:56 AM EST 04/10/2024 9:20 AM EST Claudia Sterling MD LAB BLOOD ORDERABLES [facility] [address] [place] [address], * Thyroid stimulating hormone (04/10/2024 5:56 AM EST) TSH 1.55 0.40 - 4.00 mcIU/mL LAB CHEMISTRY METHOD 04/10/2024 10:20 AM EST [facility] Blood Venous blood specimen / Unknown Venipuncture / Unknown 04/10/2024 5:56 AM EST 04/10/2024 9:20 AM EST Claudia Sterling MD LAB BLOOD ORDERABLES Performing Organization Address City/[facility]/ZIP Co de Phone Number [facility] [address] [place] [address], [place] [phone] * Folate (04/10/2024 5:56 AM EST) [facility] Folate 7.3 2.8 - 17.0 ng/ml LAB CHEMISTRY METHOD 04/10/2024 11:13 AM EST [facility] Blood Venous blood specimen / Unknown Venipuncture / Unknown 04/10/2024 5:56 AM EST 04/10/2024 9:20 AM EST Claudia Sterling MD LAB BLOOD ORDERABLES Performing Organization Address [facility]/ZIP Co de Phone Number [facility] [address] [place] [address], [place] [phone] * Vitamin B12 (04/10/2024 5:56 AM EST) [facility] Vitamin B-12 314 250 - 900 pcg/mL LAB CHEMISTRY METHOD 04/10/2024 11:13 AM EST [facility] Blood Venous blood specimen / Unknown Venipuncture / Unknown 04/10/2024 5:56 AM EST 04/10/2024 9:20 AM EST Claudia Sterling MD LAB BLOOD ORDERABLES Performing Organization Address City/[facility]/ZIP Co de Phone Number [facility] [address] [place] [address], [place] [phone] * Lipid panel with reflex to direct LDL (04/02/2024 9:34 AM EST) [facility] Cholesterol 171 0 - 200 mg/dL LAB CHEMISTRY METHOD 04/02/2024 12:03 PM EST [facility] Triglycerides 125 0 - 150 mg/dL LAB CHEMISTRY METHOD 04/02/2024 12:03 PM [facility] HDL 77 >=40 mg/dL LAB CHEMISTRY METHOD 04/02/2024 12:03 PM [facility] LDL Calculated 69 0 - 100 mg/dL LAB CHEMISTRY METHOD 04/02/2024 12:03 PM [facility] VLDL Cholesterol Larry 25 mg/dL LAB CHEMISTRY METHOD 04/02/2024 12:03 PM [facility] Non HDL Chol. (LDL+VLDL) 94 <145 mg/dL LAB CHEMISTRY METHOD 04/02/2024 12:03 PM [facility] Chol/HDL Ratio 2.2 0.0 - 4.4 LAB CHEMISTRY METHOD 04/02/2024 12:03 PM [facility] Blood Venous blood specimen / Unknown Venipuncture / Unknown 04/02/2024 9:34 AM EST 04/02/2024 10:55 AM EST Claudia Sterling MD LAB BLOOD ORDERABLES [facility] [address] [place] [address], * (ABNORMAL) Complete blood count (04/02/2024 9:34 AM EST) WBC 6.6 4.8 - 10.8 K/mcL LAB HEMETOLOGY METHOD 04/02/2024 11:06 AM [facility] RBC 5.00(H) 3.80 - 4.80 M/mcL LAB HEMETOLOGY METHOD 04/02/2024 11:06 AM [facility] Hemoglobin 15.4 11.5 - 16.0 g/dL LAB HEMETOLOGY METHOD 04/02/2024 11:06 AM [facility] Hematocrit 46.5 35.0 - 47.0 % LAB HEMETOLOGY METHOD 04/02/2024 11:06 AM [facility] MCV 93.4 79.0 - 98.0 FL LAB HEMETOLOGY METHOD 04/02/2024 11:06 AM EST [facility] MCH 30.9 27.0 - 32.0 pcg LAB HEMETOLOGY METHOD 04/02/2024 11:06 AM [facility] MCHC 33.1 32.0 - 37.0 g/dL LAB HEMETOLOGY METHOD 04/02/2024 11:06 AM EST [facility] RDW 13.2 11.0 - 15.0 % LAB HEMETOLOGY METHOD 04/02/2024 11:06 AM [facility] Platelets 293 130 - 400 K/mcL LAB HEMETOLOGY METHOD 04/02/2024 11:06 AM [facility] MPV 10.8 7.0 - 11.0 FL LAB HEMETOLOGY METHOD 04/02/2024 11:06 AM EST [facility] NRBC 0.0 <1.0 % LAB HEMETOLOGY METHOD 04/02/2024 11:06 AM [facility] NRBC Absolute 0.00 <0.10 K/mcL LAB HEMETOLOGY METHOD 04/02/2024 11:06 AM [facility] Blood Venous blood specimen / Unknown Venipuncture / Unknown 04/02/2024 9:34 AM EST 04/02/2024 10:55 AM EST Claudia Sterling MD LAB BLOOD ORDERABLES [facility] [address] [place] [address], * (ABNORMAL) Hemoglobin A1c (04/02/2024 9:34 AM EST) Hemoglobin A1C 6.6(H) <6.5 % LAB CHEMISTRY METHOD 04/03/2024 3:04 PM EST [facility] Mean Bld Glu Estim. 143 mg/dL LAB CHEMISTRY METHOD 04/03/2024 3:04 PM [facility] Blood Venous blood specimen / Unknown Venipuncture / Unknown 04/02/2024 9:34 AM EST 04/02/2024 10:55 AM EST Claudia Sterling MD LAB BLOOD ORDERABLES [facility] [address] [place] [address], * (ABNORMAL) Basic metabolic panel (04/02/2024 9:34 AM EST) Sodium 141 133 - 145 mmol/L LAB CHEMISTRY METHOD 04/02/2024 11:53 AM [facility] Potassium 4.2 3.5 - 5.5 mmol/L LAB CHEMISTRY METHOD 04/02/2024 11:53 AM [facility] Chloride 111(H) 96 - 110 mmol/L LAB CHEMISTRY METHOD 04/02/2024 11:53 AM [facility] CO2 22 21 - 32 mmol/L LAB CHEMISTRY METHOD 04/02/2024 11:53 AM [facility] Anion Gap 8 3 - 11 LAB CHEMISTRY METHOD 04/02/2024 11:53 AM [facility] Glucose 178(H) 70 - 100 mg/dL LAB CHEMISTRY METHOD 04/02/2024 11:53 AM [facility] BUN 13 5 - 25 mg/dL LAB CHEMISTRY METHOD 04/02/2024 11:53 AM [facility] Creatinine 0.98 0.50 - 1.10 mg/dL LAB CHEMISTRY METHOD 04/02/2024 11:53 AM [facility] eGFR 66 >=60 mL/min/1. 73m2 LAB CHEMISTRY METHOD 04/02/2024 11:53 AM [facility] Comment:Calculation based on the??Chronic Kidney Disease Epidemiology Collaboration (CKD-EPI) equation refit??without adjustment for race. BUN/Creatinine Ratio 13.3 LAB CHEMISTRY METHOD 04/02/2024 11:53 AM EST [facility] Calcium 9.9 8.5 - 10.5 mg/dL LAB CHEMISTRY METHOD 04/02/2024 11:53 AM EST [facility] Blood Venous blood specimen / Unknown Venipuncture / Unknown 04/02/2024 9:34 AM EST 04/02/2024 10:55 AM EST Claudia Sterling MD LAB BLOOD ORDERABLES [facility] [address] [place] [address], * YASMINE SCREENING DIGITAL (12/21/2023 3:40 PM EDT) Anatomical Region Laterality Modality Mammography 12/21/2023 11:0 6 AM EDT Narrative 12/21/2023 3:40 PM EDT [facility] Diagnostic Imaging Department [address] [place] [address] Patient: ??CALI RABAGO ?/Age/Sex: 1965 - 58 - F Unit#: ??[id number] ? Location/Status: ??SPDIMAM/REG CLI ? Mnemonic/Ordering Site: ??DIGSC/SPMAM Ordering Physician: ??ROMAIN MIRANDA MD [facility] Screening Digital - 12/21/23 - 1137 Report Status:Signed EXAM: Yasmine Screening Digital EXAM DATE AND TIME: 12/21/2023 11:38 AM HISTORY: ??Screening. Personal history of left breast carcinoma treated with lumpectomy in 2017 followed by radiation treatment. COMPARISON: ??12/15/22, 12/11/21, 11/18/20 TECHNIQUE: Bilateral digital breast tomosynthesis was performed in the CC and MLO projections. Computer aided detection with [employer] 3D 3.1 was employed. TISSUE DENSITY: a. The breasts are almost entirely fatty. FINDINGS: No suspicious masses, grouped microcalcifications, or areas of architectural distortion are seen. A surgical clip is seen in the anterior left breast, subjacent to a marked skin scar, consistent with the lumpectomy site. Left axillary surgical clips are also noted. There are rare benign rim calcifications. The skin and vascularity are unremarkable. IMPRESSION: Stable mammographic appearance of the breasts. ??No evidence of malignancy is seen. A negative mammogram in the presence of a clinically suspicious palpable abnormality does not preclude the possibility of malignancy or alter the indications for biopsy. BI-RADS: ??Category 2: Benign RECOMMENDATION(S): 1: Routine screening mammogram BILATERAL in 1 year. Dictating Physician: ??KIM ROSARIO MD Electronically Signed by: ??KIM ROSARIO MD Dic Date/Time: ??12/21/23 1539 Sign date/Time: ??12/21/23 1540 Procedure Note Kim Rosario MD - 02/29/2024 [facility] Diagnostic Imaging Department [address] [place] [id number] Patient: CALI RABAGO /Age/Sex: 1965 - 58 - F Unit#: [id number] Location/Status: [facility]/REG CLI Mnemonic/Ordering Site: [facility] Ordering Physician: ROMAIN MIRANDA MD [facility] Screening Digital - 12/21/23 - 1137 Report Status:Signed EXAM: [facility] Screening Digital EXAM DATE AND TIME: 12/21/2023 11:38 AM HISTORY: Screening. Personal history of left breast carcinoma treatedwith lumpectomy in 2017 followed by radiation treatment. COMPARISON: 12/15/22, 12/11/21, 11/18/20 TECHNIQUE: Bilateral digital breast tomosynthesis was performed in the CCand MLO projections. Computer aided detection with [employer] 3D 3.1was employed. TISSUE DENSITY: a. The breasts are almost entirely fatty. FINDINGS: No suspicious masses, grouped microcalcifications, or areas ofarchitectural distortion are seen. A surgical clip is seen in the anterior leftbreast, subjacent to a marked skin scar, consistent with the lumpectomy site.Left axillary surgical clips are also noted. There are rare benign rim calcifications. The skin and vascularity are unremarkable. IMPRESSION: Stable mammographic appearance of the breasts. No evidence of malignancyis seen. A negative mammogram in the presence of a clinically suspicious palpable abnormality does not preclude the possibility of malignancy or alter the indications for biopsy. BI-RADS: Category 2: Benign RECOMMENDATION(S): 1: Routine screening mammogram BILATERAL in 1 year. Dictating Physician: KIM ROSARIO MD Electronically Signed by: KIM ROSARIO MD Dic Date/Time: 12/21/23 1539 Sign date/Time: 12/21/23 1540 Romain Miranda MD IMG BI PROCEDURES * HM Urine Albumin Creatinine Ratio (08/31/2023) [facility] Urine Albumin Creatinine Ratio abstracted Historical Provider [facility] * Hepatitis C Screening (08/31/2023) [facility] Hepatitis C Screening abstracted Historical Provider [facility] * Cervical Cancer Screening: HPV (07/15/2023) [facility] Cervical Cancer Screening: HPV negative interpretation abstracted Historical Provider [facility] * Depression Screening (07/15/2023) [facility] Depression Screening abstracted Historical Provider [facility] from Last 3 Months or Most Recently Relevant to Health Maintenance Advance Directives Documents on File Type Date Recorded 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
--- OUTSIDE RECORDS SUMMARY | 2024-06-12 11:55 | XMS_ITS | Encounter Summary ---
Author Organization [facility] Address [address] [place] [address] Care Team Providers Care Mmd Unit Teacher Name Role Phone Romain Miranda MD Primary Care Provider [phone] Encounter Details Date Type Department Care Team (Late Contact Info) Description 04/02/2024 Lab Requisition [facility] - Main Lab [address] [facility] [employer] [place] [phone] Claudia Sterling MD [address] [place] [address] Type 2 diabetes mellitus without complications (CMS/[facility]) Social History Tobacco Use Types Packs/Day Years Used Date Smoking Tobacco: Never Smokeless Tobacco: Never Alcohol Use Standard Drinks/Week Comments Yes 0 (1 standard drink = 0.6 oz pur e alcohol) Sex and Gender Information Value Date Recorded Sex Assigned at Not on file Gender Identity Not on file Sexual Orientation Not on file Job Start Date Occupation Industry Not on file Not on file Not on file documented as of this encounter Plan of Treatment Upcoming Encounters Date Type Department Care Team (Late Contact Info) Description 06/18/2024 11:45 AM EST Office Visit Orthopedic Surgery - [place] 175 [facility] 140 [place] [phone] Digna Butler MD 175 [facility] 140 [place] [address] documented as of this encounter Procedures Procedure Name Priority Date/Time Associated Diagnosis Comments LIPID PANEL WITH REFLEX TO DIRECT LDL Routine 04/02/2024 9:34 AM EST Type 2 diabetes mellitus without complications (CMS/HCC) COMPLETE BLOOD COUNT Routine 04/02/2024 9:34 AM EST Type 2 diabetes mellitus without complications (CMS/HCC) HEMOGLOBIN A1C Routine 04/02/2024 9:34 AM EST Type 2 diabetes mellitus without complications (CMS/HCC) BASIC METABOLIC PANEL Routine 04/02/2024 9:34 AM EST Type 2 diabetes mellitus without complications (CMS/HCC) documented in this encounter Results * (ABNORMAL) Hemoglobin A1c (04/02/2024 9:34 AM EST) Hemoglobin A1C 6.6(H) <6.5 % LAB CHEMISTRY METHOD 04/03/2024 3:04 PM [facility] Mean Bld Glu Estim. 143 mg/dL LAB CHEMISTRY METHOD 04/03/2024 3:04 PM [facility] Blood Venous blood specimen / Unknown Venipuncture / Unknown 04/02/2024 9:34 AM EST 04/02/2024 10:55 AM EST Claudia Sterling MD LAB BLOOD ORDERABLES [facility] [address] [place] [address], * Lipid panel with reflex to direct LDL (04/02/2024 9:34 AM EST) Cholesterol 171 0 - 200 mg/dL LAB CHEMISTRY METHOD 04/02/2024 12:03 PM EST [facility] Triglycerides 125 0 - 150 mg/dL LAB CHEMISTRY METHOD 04/02/2024 12:03 PM EST [facility] HDL 77 >=40 mg/dL LAB CHEMISTRY METHOD 04/02/2024 12:03 PM [facility] LDL Calculated 69 0 - 100 mg/dL LAB CHEMISTRY METHOD 04/02/2024 12:03 PM [facility] VLDL Cholesterol Larry 25 mg/dL LAB CHEMISTRY METHOD 04/02/2024 12:03 PM [facility] Non HDL Chol. (LDL+VLDL) 94 <145 mg/dL LAB CHEMISTRY METHOD 04/02/2024 12:03 PM [facility] Chol/HDL Ratio 2.2 0.0 - 4.4 LAB CHEMISTRY METHOD 04/02/2024 12:03 PM [facility] Blood Venous blood specimen / Unknown Venipuncture / Unknown 04/02/2024 9:34 AM EST 04/02/2024 10:55 AM EST Claudia Sterling MD LAB BLOOD ORDERABLES [facility] [address] [place] [address], * (ABNORMAL) Basic metabolic panel (04/02/2024 9:34 AM EST) Sodium 141 133 - 145 mmol/L LAB CHEMISTRY METHOD 04/02/2024 11:53 AM [facility] Potassium 4.2 3.5 - 5.5 mmol/L LAB CHEMISTRY METHOD 04/02/2024 11:53 AM [facility] Chloride 111(H) 96 - 110 mmol/L LAB CHEMISTRY METHOD 04/02/2024 11:53 AM [facility] CO2 22 21 - 32 mmol/L LAB CHEMISTRY METHOD 04/02/2024 11:53 AM [facility] Anion Gap 8 3 - 11 LAB CHEMISTRY METHOD 04/02/2024 11:53 AM [facility] Glucose 178(H) 70 - 100 mg/dL LAB CHEMISTRY METHOD 04/02/2024 11:53 AM [facility] BUN 13 5 - 25 mg/dL LAB CHEMISTRY METHOD 04/02/2024 11:53 AM [facility] Creatinine 0.98 0.50 - 1.10 mg/dL LAB CHEMISTRY METHOD 04/02/2024 11:53 AM [facility] eGFR 66 >=60 mL/min/1. 73m2 LAB CHEMISTRY METHOD 04/02/2024 11:53 AM [facility] Comment:Calculation based on the??Chronic Kidney Disease Epidemiology Collaboration (CKD-EPI) equation refit??without adjustment for race. BUN/Creatinine Ratio 13.3 LAB CHEMISTRY METHOD 04/02/2024 11:53 AM [facility] Calcium 9.9 8.5 - 10.5 mg/dL LAB CHEMISTRY METHOD 04/02/2024 11:53 AM [facility] Blood Venous blood specimen / Unknown Venipuncture / Unknown 04/02/2024 9:34 AM EST 04/02/2024 10:55 AM EST Claudia Sterling MD LAB BLOOD ORDERABLES [facility] [address] [place] [address], * (ABNORMAL) Complete blood count (04/02/2024 9:34 AM EST) WBC 6.6 4.8 - 10.8 K/mcL LAB HEMETOLOGY METHOD 04/02/2024 11:06 AM [facility] RBC 5.00(H) 3.80 - 4.80 M/mcL LAB HEMETOLOGY METHOD 04/02/2024 11:06 AM [facility] Hemoglobin 15.4 11.5 - 16.0 g/dL LAB HEMETOLOGY METHOD 04/02/2024 11:06 AM [facility] Hematocrit 46.5 35.0 - 47.0 % LAB HEMETOLOGY METHOD 04/02/2024 11:06 AM EST [facility] MCV 93.4 79.0 - 98.0 FL LAB HEMETOLOGY METHOD 04/02/2024 11:06 AM [facility] MCH 30.9 27.0 - 32.0 pcg LAB HEMETOLOGY METHOD 04/02/2024 11:06 AM EST [facility] MCHC 33.1 32.0 - 37.0 g/dL LAB HEMETOLOGY METHOD 04/02/2024 11:06 AM [facility] RDW 13.2 11.0 - 15.0 % LAB HEMETOLOGY METHOD 04/02/2024 11:06 AM [facility] Platelets 293 130 - 400 K/mcL LAB HEMETOLOGY METHOD 04/02/2024 11:06 AM EST [facility] MPV 10.8 7.0 - 11.0 FL LAB HEMETOLOGY METHOD 04/02/2024 11:06 AM [facility] NRBC 0.0 <1.0 % LAB HEMETOLOGY METHOD 04/02/2024 11:06 AM [facility] NRBC Absolute 0.00 <0.10 K/mcL LAB HEMETOLOGY METHOD 04/02/2024 11:06 AM [facility] Blood Venous blood specimen / Unknown Venipuncture / Unknown 04/02/2024 9:34 AM EST 04/02/2024 10:55 AM EST Claudia Sterling MD LAB BLOOD ORDERABLES [facility] [address] [place] [address], documented in this encounter Visit Diagnoses Diagnosis Type 2 diabetes mellitus without complications (CMS/HCC) documented in this encounter Care Teams Mmd Unit Teacher Relationship Specialty Start Date End Date Romain Miranda MD [address] [place] [address] PCP - General 02/01/23 documented as of this encounter
--- OUTSIDE RECORDS SUMMARY | 2024-06-12 11:55 | XMS_ITS | Encounter Summary ---
Author Organization [facility] Address [address] [place] [address] Care Team Providers Care Classifications Officer Cc/Cm Name Role Phone Romain Miranda MD Primary Care Provider [phone] Encounter Details Date Type Department Care Team (Late Contact Info) Description 04/10/2024 Lab Requisition [facility] - Main Lab 299 [facility] [employer] [place] [phone] Claudia Sterling MD [address] [place] [address] Hyperlipidemia, unspecified Social History Tobacco Use Types Packs/Day Years [...] AM EST Office Visit Orthopedic Surgery - [place] 175 [facility] 140 [place] [phone] Digna Butler MD 175 [facility] 140 [place] [phone] documented as of this encounter Procedures Procedure Name Priority Date/Time Associated Diagnosis Comments VITAMIN D 25 HYDROXY Routine 04/10/2024 5:56 AM EST Hyperlipidemia, unspecified THYROID STIMULATING HORMONE Routine 04/10/2024 5:56 AM EST Hyperlipidemia, unspecified FOLATE Routine 04/10/2024 5:56 AM EST Hyperlipidemia, unspecified VITAMIN B12 Routine 04/10/2024 5:56 AM EST Hyperlipidemia, unspecified documented in this encounter Results * Vitamin D 25 hydroxy (04/10/2024 5:56 AM EST) Vit D, 25-Hydroxy 43.5 30.0 - 80.0 ng/mL LAB CHEMISTRY METHOD 04/10/2024 10:20 AM EST [facility] Blood Venous blood specimen / Unknown Venipuncture / Unknown 04/10/2024 5:56 AM EST 04/10/2024 9:20 AM EST Claudia Sterling MD LAB BLOOD ORDERABLES [facility] [address] [place] [address], * Thyroid stimulating hormone (04/10/2024 5:56 AM EST) Pathologist [facility] TSH 1.55 0.40 - 4.00 mcIU/mL LAB CHEMISTRY METHOD 04/10/2024 10:20 AM EST [facility] Blood Venous blood specimen / Unknown Venipuncture / Unknown 04/10/2024 5:56 AM EST 04/10/2024 9:20 AM EST Claudia Sterling MD LAB BLOOD ORDERABLES [facility] [address] [place] [address], [place] [phone] * Folate (04/10/2024 5:56 AM EST) Folate 7.3 2.8 - 17.0 ng/ml LAB CHEMISTRY METHOD 04/10/2024 11:13 AM EST [facility] Blood Venous blood specimen / Unknown Venipuncture / Unknown 04/10/2024 5:56 AM EST 04/10/2024 9:20 AM EST Claudia Sterling MD LAB BLOOD ORDERABLES Performing Organization Address City/[facility]/ZIP Co de Phone Number [facility] [address] [place] [address], [place] [phone] * Vitamin B12 (04/10/2024 5:56 AM EST) Pathologist [facility] Vitamin B-12 314 250 - 900 pcg/mL LAB CHEMISTRY METHOD 04/10/2024 11:13 AM EST [facility] Blood Venous blood specimen / Unknown Venipuncture / Unknown 04/10/2024 5:56 AM EST 04/10/2024 9:20 AM EST Claudia Sterling MD LAB BLOOD ORDERABLES [facility] [address] [place] [address], documented in this encounter Visit Diagnoses Diagnosis Hyperlipidemia, unspecified documented in this encounter Care Teams Classifications Officer Cc/Cm Relationship Specialty Start Date End Date Romain Miranda MD [address] [address] PCP - General 02/01/23 documented as of this encounter
--- OUTSIDE RECORDS SUMMARY | 2024-06-12 11:55 | XMS_ITS | Encounter Summary ---
Author Organization [facility] Address [address] [place] [address] Care Team Providers Care Iron Piler Name Role Phone Neeta Guzman MD Primary Care Provider [phone] Encounter Details Date Type Department Care Team Description 02/24/2021 Nurse Only [facility] [address] [place] [address] Augustus Andrea RN Social History Tobacco Use Types Packs/Day Years Used Date Smoking Tobacco: Never Smokeless Tobacco: Never Alcohol Use Standard Drinks/Week Comments No 0 (1 standard drink = 0.6 oz pur e alcohol) Sex and Gender Information Value Date Recorded Sex Assigned at Not on file Gender Identity Not on file Sexual Orientation Not on file Job Start Date Occupation Industry Not on file Not on file Not on file COVID-19 Exposure Response Date Recorded In the last month, have you been in contact with someone who was confirmed or suspected to have Coronavirus / COVID-19? No / Unsure 02/03/2021 10:20 AM EDT documented as of this encounter Progress Notes * Augustus Andrea RN - 02/24/2021 9:39 AM EDT Received call from patient she was upset, she had a call from Dr. Murry's office with an appointment for her. She had seen him in the past and did not want to be referred back to him. Per routing she was to be referred to Dr. Youngblood, she had called his office and the first available appointment is Apr. This lead technical writer sent a request to Dr. Brent Young in [place], records have been faxed and theywill reach out to the patient directly with an appointment,patient aware. documented in this encounter Plan of Treatment Not on file documented as of this encounter Visit Diagnoses Not on filedocumented in this encounter Care Teams Iron Piler Relationship Specialty Start Date End Date Neeta Guzman MD [address] [address] PCP - General Internal Medicine 12/19/20 documented as of this encounter
--- OUTSIDE RECORDS SUMMARY | 2024-06-12 11:55 | XMS_ITS | Continuity of Care Document ---
Author Organization [facility] Address [address] [place] [address] Care Team Providers Care Certified Fraud Examiner Name Role Phone [facility] OTHER [phone] Assessment No assessment recorded. Plan of Treatment [...] Recorded Time Chronic obstructiv e pulmonary disease 93393985 Active 2024 CHAKA BELTRE [address] , [address], [place], [address] , [facility] [employer] [facility] 5 15:25:46 Asthma 032069737 Active 2024 CHAKA BELTRE [address] , [address], [place], [address] , [facility] [employer] [facility] 5 15:25:54 Diabetes mellitus 61387676 Active 2024 MIKEY BELTREP [address] , [address], [place], [address] , [facility] [employer] 5 15:26:12 Hyperlipid emia 27210397 Active 2024 CHAKA BELTRE [address], [place], [address] , [facility] [employer] 5 15:26:19 Neuropathy 785713763 Active 2024 CHAKA BELTRE [address] , [address], [place], [address] , [facility] 5 15:27:11 Essential tremor 164209305 Active 2024 CHAKA BELTRE [address] , [address], [place], [address] , [facility] 5 15:27:41 Post-luz marina ectomy syndrome 35067756 Active 2024 CHAKA BELTRE [address], [place], [address] , [facility] 5 15:29:52 Neuralgia 47638717 Active 2024 CHAKA BELTRE [address] [facility], [address], [place], [address] , [facility] 5 15:33:29 Mixed anxiety and depressive disorder 873855448 Active 2024 CHAKA BELTRE [address] [facility], [address], [place], [address] , [facility] 5 15:36:49 Diarrhea 09978973 Active 2023 Not Available [facility] 5 09:48:27 Recurrent major depression 14460840 Active 2023 Not Available [facility] 5 09:48:27 Type 2 diabetes mellitus without complicati on 747599616 Active 2023 Not Available [facility] 5 09:48:28 Anxiety disorder 664665448 Active 2023 Not Available [facility] 5 09:48:29 Obesity 221144749 Completed 202306/07/2024 Not Available [facility] 5 09:48:31 Primary insomnia 1123757 Active 2023 Not Available [facility] 5 09:48:31 Obesity 040688260 Active 2023 Not Available [facility] 5 09:48:32 Muscle weakness 48435462 Active 2023 Not Available [facility] 5 09:48:32 Difficulty walking 654275790 Active 2023 Not Available [facility] 5 09:48:32 Uncomplica charley asthma 202554572 Active 2023 Not Available [facility] 5 09:48:33 Disorder of nervous system due to type 2 diabetes mellitus 735599192 Active 2023 Not Available [facility] 5 09:48:33 Depressive disorder 84895647 Active 2023 Not Available [facility] 5 09:48:34 Disease caused by Coronaviri hermelinda 35217728 Active 2023 Not Available [facility] 5 09:48:35 Problem Notes None recorded. Medical Equipment None Reported. Allergies Allergen ID Allergen Name Allergen Category Reaction Reaction Severity Criticality Documentation Date Start Date Code Code System Note Provider Name and Address Organization Details Recorded Time [id number] 2824e onion extract food,medi cation Not available Not available Not available 05/25/2024 79399 69 RxNorm Not Available Not Available Not [...] 130 mm[Hg] 68 mm[Hg] CHAKA BELTRE [address] [facility], [address], [place], [address] , [place] - [facility] 5 16:41:36 Social History None recorded. Functional Status None recorded. Mental Status None recorded. Family History Nothing Reported. Medical History No medical history recorded. Gynecological HistoryNo gynecological history recorded. Obstetrics History GPAL:G 0 P 0 0 0 0 Past Encounters Encounter ID Performer Location Encounter Start Date Encounter Closed Date Diagnosis/Indication Diagnosis SNOMED-CT Code Diagnosis ICD10 Code Diagnosis Note [id number] CHAKA BELTRE [facility] [address] [place] [address] 05/25/2024 17:53:11 05/30/2024 08:06:36 Neuralgia 90923898 M79.2 Right occipital neuralgiaf /u with neurology prnadd cold compressed 15min a few times dailyconti nue topamax Chronic ob structive pulmonary disease 41913675 J44.9 Continue ProAir, albuterol nebulizer treatments , Spiriva Diabetes mellitus 502516 09 E11.9 Continue Trulicity, Jardiance, SSC Mixed anxi ety and depressive disorder 207492379 F41.8 continue Bupropion, Duloxetine ,Clonazepa m, lamictalla mictal recently increased to 50 mg BID pt reported sx associated with increased. Med decreased back to 25 mg BID, will monitor for resolution . Asthma 017392858 J45.90 9 albuterol prn Hyperlipidemia 08339306 E78.5 continue lipitorfol low labs Neuropathy 551584239 G62 .9 continue gabapentin , tizanidine Essential tremor 6280582 09 G25.0 continue primidone TID Post-luz marina ectomy syndrome 90953832 M96.1 see above meds. Health Concerns Section Related Observation LastModified by Organization Detai ls LastModified Time None Recorded Concern Status LastModified by Organization Details LastModified Time None Recorded Payers Encounter Date Sequence Insurance Name Policy Number Policy Pandya Covered Member ID Pandya Member ID Guarantor Name 05/25/2024 1 [place] [facility] Cali Rabago [id number] Cali Hima Notes Date Note Type Note [...] reaction to onions . CHAKA BELTRE [address] [facility], [address], [place], [address], [facility] - [facility] 05/29/2024 16:43:59 OBGyn Episode No OBEpisode recorded.
--- OUTSIDE RECORDS SUMMARY | 2024-06-12 11:56 | XMS_ITS | Clinical Summary ---
Author Organization [facility] Address [address] [place] [address] Care Team Providers Care Operating Table Assembler Name Role Phone Neeta Guzman MD Primary Care Provider [phone] Allergies Active Allergy Reactions Criticality Noted Date Comments Bee Sting Anaphylaxis High 01/06/2017 Onion 01/06/2017 Onion Anaphylaxis High 08/30/2018 Medications Medication Sig Dispensed Refills Start Date End Date Status gabapentin (NEURONTIN) 600 MG tablet Take 600 mg by mouth 3 (three) times a day. 0 Active buPROPion (WELLBUTRIN XL) 150 MG 24 hr tablet Take 150 mg by mouth daily. 0 Active tiZANidine (ZANAFLEX) 4 MG tablet Take 4 mg by mouth every 8 (eight) hours as needed. 0 Active topiramate (TOPAMAX) 50 MG tablet Take 50 mg by mouth 2 (two) times a day. 0 Active duloxetine (CYMBALTA) DR capsule 60 mg Take 60 mg by mouth daily. 0 Active oxyCODONE-acetaminophen (ENDOCET) 10-325 MG per tablet Take 1 tablet by mouth 2 (two) times a day. 0 Active cholecalciferol (VITAMIN D3) 1000 UNITS tablet Take 1,000 Units by mouth daily. 0 Active ondansetron (ZOFRAN-ODT) 4 MG disintegrating tablet DISSOLVE 1 BY MOUTH EVERY DAY NEEDED FOR NAUSEA 0 10/20/2020 Active tiZANidine (ZANAFLEX) 2 MG tablet Take 2 mg by mouth every 6 (six) hours as needed. 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 12/19/2020 History of cancer of left breast 08/30/2018 Overview: 12/2016 S/p lumpectomy and radiation, no hormonal treatment was recommended; Estrogen receptor + Morbid obesity with BMI of 40.0-44.9, adult 02/10/2018 Peripheral neuropathy 11/01/2017 Malignant neoplasm of overla pping sites of left female breast 01/06/2017 Atypical squamous cell craft es of cervix undetermined significance favor benign 05/30/2013 Obstructive sleep apnea 11/07/2012 Vitamin D deficiency 09/09/2011 Cervical post-laminectomy syndrome 10/01/2010 Allergic rhinitis 07/23/2010 Family History Medical History Relation Name Comments Cancer Maternal Aunt breast ca. Cancer Maternal Uncle prostate ca Relation Name Status Comments Maternal Aunt Maternal Uncle Social History Tobacco Use Types Packs/Day Years [...] file Not on file Not on file Last Filed Vital Signs Vital Sign Reading Time Taken Comments Blood Pressure 140/92 08/04/2022 11:07 AM EDT Pulse 86 08/04/2022 11:07 AM EDT Temperature 36.2 ??C (97.2 ??F) 08/04/2022 11:07 AM E DT Respiratory Rate - - Oxygen Saturation 98% 08/04/2022 11:07 AM EDT Inhaled Oxygen Concentration - - Weight 93.9 kg (207 lb) 08/04/2022 11:07 AM EDT Height 167.6 cm (5' 6 ) 12/29/2020 10:28 AM EDT Body Mass Index 33.41 12/29/2020 10:28 AM EDT Plan of Treatment Health Maintenance Due Date Last Done Comments Hepatitis C Screening 1965 COVID-19 Vaccine (#1) 10/29/1968 Depression Screening 1975 Preventative Health Evaluation 10/29/1981 Shingrix-Zoster Vaccine (1 of 2) 10/29/1982 Cervical Cancer Screening (P ap Smear) 10/29/1984 DTap / Tdap / Td (1 - Tdap) 05/21/2008 05/20/2008 Colon Cancer Screening (Colonoscopy) 10/29/2008 Pneumococcal Vaccine (2 of 2 - PCV) 06/01/2013 06/01/2012 Breast Cancer Screening (Mammogram) 10/29/2013 RSV Adult > 60+ Yrs or Pregn ant (1 - Risk 60-74 years 1-dose series) 2023 Influenza Vaccine (#1) 2024 Hepatitis B Vaccines Aged Out No long er eligible based on patient's age to complete this topic RSV Ped < 20 months Aged Out No longe r eligible based on patient's age to complete this topic Care Teams Operating Table Assembler Relationship Specialty Start Date End Date Neeta Guzman MD [address] [place] [address] [address] [place] [address] PCP - General Internal Medicine 12/19/20
== END 2024-06-12 11:23 | disposition home or self-care (01) ==
PROVIDERS: PCP Student in an Organized Health Care Education/Training Program; Visit Provider Internal Medicine Pulmonary Disease
DX: J45.909 Unspecified asthma, uncomplicated (principal); D86.9 Sarcoidosis, unspecified
CPT/HCPCS: 99214

== ENCOUNTER → 2024-06-12 10:48 | Outpatient (BNVA) | payer MEDICAID, SELFPAY | PROVIDERS: PCP Internal Medicine; Visit Provider Internal Medicine Pulmonary Disease | DX: D86.9 Sarcoidosis, unspecified (principal); J45.909 Unspecified asthma, uncomplicated | CPT/HCPCS: 99212 ==

== ENCOUNTER 2024-12-03 13:40 | Outpatient (AMB) | payer MEDICAID, SELFPAY ==
[2024-12-03 13:46] VITALS: BP 108/66; PULSE 87; O2SAT 94; BMI 31.7
--- NOTE | 2024-12-03 13:46 | A.OFFVIS_ITS ---
Vital Signs 12/03/24 13:46 Height 5 ft 6 in Weight 196 lb 4 oz BMI 31.7 BP 108/66 Blood Pressure Location Rt brachial Position Sitting Pulse 87 Pulse Source Pulse Oximeter Pulse Oximetry (%) 94 Oxygen Delivery Method Room Air Intake Visit Reasons: sarcoidosis Allergies onion Allergy (Unknown, Verified 06/12/24 11:05) Unknown HPI HPI sarcoidosis: Details: 59-year-old lady with underlying history of asthma previously seen by Dr. Murry, now followed for diagnosis of sarcoidosis on mediastinoscopy and mediastinal lymph node biopsy.? Patient continues on Breo, Spiriva, and albuterol MDI with good control of underlying symptoms. With recent allergic exacerbation and still with residual symptoms. Review of Systems Const Denies daytime sleepiness, Denies excessive sweating, Denies fatigue, Denies fever(s), Denies lethargy, Denies malaise, Denies night sweats, Denies snoring and Denies weight loss Eyes Denies blurry vision and Denies itchy eyes ENT Denies nasal congestion, Denies post nasal drip, Denies sinus pain, Denies sinus pressure and Denies other ( Thrush) Card Denies chest pain, Denies pedal edema, Denies dyspnea, Denies orthopnea and Denies paroxysmal nocturnal dyspnea Resp Denies cough, Denies hemoptysis, Denies excessive phlegm production, Denies dyspnea, Denies snoring and Denies wheezing GI Denies abdominal pain and Denies heartburn Musc Denies myalgias, Denies arthralgias and Denies joint swelling Skin/Breast Denies rash Neuro Denies memory loss and Denies seizure-like activity Psych Denies abnormal sleep pattern, Denies anxiety and Denies memory loss Endo Denies excessive sweating, Denies fatigue and Denies heat intolerance Nacho/Lymph Denies easy bruising Aller/Immun Denies itchy eyes, Denies seasonal rhinorrhea and Denies wheezing Physical Exam Vital Signs: Last Vital Signs Pulse 87 12/03/24 13:46 BP 108/66 12/03/24 13:46 Pulse Ox 94 12/03/24 13:46 Oxygen Delivery Method Room Air 12/03/24 13:46 BMI result Body Mass Index 31.7 Const General: no acute distress and alert Nutritional Appearance: not obese Orientation/consciousness: Other orientation findings ( oriented) HEENT Head: Yes atraumatic Eyes General: appearance normal, both eyes and all related structures Sclerae: sclerae normal EOM: EOMs intact bilaterally Neck Neck: Yes supple Lymphatic: no lymphadenopathy noted Resp Effort & Inspection: normal respiratory effort and no use of accessory muscles Auscultation: clear to auscultation bilaterally Cardio Rate: regular rate Rhythm: regular rhythm Heart sounds: no gallops, no murmurs and no rubs Skin General skin exam: other ( warm) Extrem General: No clubbing, No cyanosis and No edema Assessment & Plan Assessment & Plan (1) Asthma: Code(s): J45.909 - Unspecified asthma, uncomplicated Category: Medical Plan: Baseline controlled on Breo, Spiriva, and albuterol MDI. Continue current regimen. With recent allergic exacerbation, will treat with a course of prednis one. (2) Sarcoidosis: Code(s): D86.9 - Sarcoidosis, unspecified Category: Medical Plan: No recent exacerbations, continue to monitor clinically. (3) Allergic rhinitis: Code(s): J30.9 - Allergic rhinitis, unspecified Category: Medical Plan: Well controlled on Flonase. Continue current regimen. Coding Level of Care Code Est Pt Level 4 (95320) Diagnoses Asthma J45.909 Sarcoidosis D86.9 Allergic rhinitis J30.9
--- OUTSIDE RECORDS SUMMARY | 2024-12-03 14:28 | XMS_ITS | Encounter Summary ---
Author Organization [facility] Address [address] [place] [address] Care Team Providers Care Pipelines Manager Name Role Phone Hong Gibbs MD Primary Care Provider [phone] Encounter Details Date Type Department Care Team (Late Contact Info) Description 04/02/2024 Lab Requisition [facility] - Main Lab [address] [facility] [place] [phone] Claudia Sterling MD [address] [place], [place] [id number] Type 2 diabetes mellitus without complications (CMS/HCC V24, CMS/HCC V28) Social History Tobacco Use Types Packs/Day Years Used Date Smoking Tobacco: Never Smokeless Tobacco: Never Alcohol Use Standard Drinks/Week Comments Yes 0 (1 standard drink = 0.6 oz pur e alcohol) Comments Unknown Sex and Gender Information Value Date Recorded Sex Assigned at Not on file Legal Sex Female 10:20 PM EST Gender Identity Not on file Sexual Orientation Not on file documented as of this encounter Plan of Treatment Upcoming Encounters Date Type Department Care Team (Late Contact Info) Description 02/26/2025 11:15 AM EDT Office Visit Orthopedic Surgery - [place] [address] [facility] [address] [place] [address] Digna Butler MD 175 [facility] [address] [place] [address] documented as of this encounter [...] EST Type 2 diabetes mellitus without complications ([facility]/HCC) documented in this encounter Results * (ABNORMAL) Hemoglobin A1c (04/02/2024 9:34 AM EST) Hemoglobin A1C 6.6(H) <6.5 % LAB CHEMISTRY METHOD 04/03/2024 3:04 PM EST [facility] Mean Bld Glu Estim. 143 mg/dL LAB CHEMISTRY METHOD 04/03/2024 3:04 PM [facility] Blood Venous blood specimen / Unknown Venipuncture / Unknown 04/02/2024 9:34 AM EST 04/02/2024 10:55 AM EST us Claudia Sterling MD LAB BLOOD ORDERABLES Final Resul t [facility] [address] [place] [address], * Lipid panel with reflex to direct LDL (04/02/2024 9:34 AM EST) Cholesterol 171 0 - 200 mg/dL LAB CHEMISTRY METHOD 04/02/2024 12:03 PM EST [facility] Triglycerides 125 0 - 150 mg/dL LAB CHEMISTRY METHOD 04/02/2024 12:03 PM [facility] HDL 77 >=40 mg/dL LAB CHEMISTRY METHOD 04/02/2024 12:03 PM [facility] LDL Calculated 69 0 - 100 mg/dL LAB CHEMISTRY METHOD 04/02/2024 12:03 PM [facility] VLDL Cholesterol Larry 25 mg/dL LAB CHEMISTRY METHOD 04/02/2024 12:03 PM [facility] Non HDL Chol. (LDL+VLDL) 94 <145 mg/dL LAB CHEMISTRY METHOD 04/02/2024 12:03 PM [facility] Chol/HDL Ratio 2.2 0.0 - 4.4 LAB CHEMISTRY METHOD 04/02/2024 12:03 PM [facility] Blood Venous blood specimen / Unknown Venipuncture / Unknown 04/02/2024 9:34 AM EST 04/02/2024 10:55 AM EST Claudia Sterling MD LAB BLOOD ORDERABLES Final Resul t [facility] [address] [place] [address], * (ABNORMAL) Basic metabolic panel (04/02/2024 9:34 AM EST) Sodium 141 133 - 145 mmol/L LAB CHEMISTRY METHOD 04/02/2024 11:53 AM [facility] Potassium 4.2 3.5 - 5.5 mmol/L LAB CHEMISTRY METHOD 04/02/2024 11:53 AM [facility] Chloride 111(H) 96 - 110 mmol/L LAB CHEMISTRY METHOD 04/02/2024 11:53 AM [facility] CO2 22 21 - 32 mmol/L LAB CHEMISTRY METHOD 04/02/2024 11:53 AM [facility] Anion Gap 8 3 - 11 LAB CHEMISTRY METHOD 04/02/2024 11:53 AM EST [facility] Glucose 178(H) 70 - 100 mg/dL LAB CHEMISTRY METHOD 04/02/2024 11:53 AM [facility] BUN 13 5 - 25 mg/dL LAB CHEMISTRY METHOD 04/02/2024 11:53 AM [facility] Creatinine 0.98 0.50 - 1.10 mg/dL LAB CHEMISTRY METHOD 04/02/2024 11:53 AM [facility] eGFR 66 >=60 mL/min/1. 73m2 LAB CHEMISTRY METHOD 04/02/2024 11:53 AM [facility] Comment:Calculation based on the Chronic Kidney Disease Epidemiology Collaboration (CKD-EPI) equation refit without adjustment for race. BUN/Creatinine Ratio 13.3 LAB CHEMISTRY METHOD 04/02/2024 11:53 AM [facility] Calcium 9.9 8.5 - 10.5 mg/dL LAB CHEMISTRY METHOD 04/02/2024 11:53 AM [facility] Blood Venous blood specimen / Unknown Venipuncture / Unknown 04/02/2024 9:34 AM EST 04/02/2024 10:55 AM EST Claudia Sterling MD LAB BLOOD ORDERABLES Final Resul t [facility] [address] [place] [address], * (ABNORMAL) Complete blood count (04/02/2024 9:34 AM EST) WBC 6.6 4.8 - 10.8 K/mcL LAB HEMETOLOGY METHOD 04/02/2024 11:06 AM [facility] RBC 5.00(H) 3.80 - 4.80 M/mcL LAB HEMETOLOGY METHOD 04/02/2024 11:06 AM [facility] Hemoglobin 15.4 11.5 - 16.0 g/dL LAB HEMETOLOGY METHOD 04/02/2024 11:06 AM [facility] Hematocrit 46.5 35.0 - 47.0 % LAB HEMETOLOGY METHOD 04/02/2024 11:06 AM [facility] MCV 93.4 79.0 - 98.0 FL LAB HEMETOLOGY METHOD 04/02/2024 11:06 AM [facility] MCH 30.9 27.0 - 32.0 pcg LAB HEMETOLOGY METHOD 04/02/2024 11:06 AM [facility] MCHC 33.1 32.0 - 37.0 g/dL LAB HEMETOLOGY METHOD 04/02/2024 11:06 AM [facility] RDW 13.2 11.0 - 15.0 % LAB HEMETOLOGY METHOD 04/02/2024 11:06 AM [facility] Platelets 293 130 - 400 K/mcL LAB HEMETOLOGY METHOD 04/02/2024 11:06 AM [facility] MPV 10.8 7.0 - 11.0 FL LAB HEMETOLOGY METHOD 04/02/2024 11:06 AM [facility] NRBC 0.0 <1.0 % LAB HEMETOLOGY METHOD 04/02/2024 11:06 AM [facility] NRBC Absolute 0.00 <0.10 K/mcL LAB HEMETOLOGY METHOD 04/02/2024 11:06 AM [facility] Blood Venous blood specimen / Unknown Venipuncture / Unknown 04/02/2024 9:34 AM EST 04/02/2024 10:55 AM EST us Claudia Sterling MD LAB BLOOD ORDERABLES Final Resul t [facility] [address] [place] [address], documented in this encounter Visit Diagnoses Diagnosis Type 2 diabetes mellitus without complications (CMS/[facility] V24, CMS/[facility] V28) documented in this encounter Care Teams Pipelines Manager Relationship Specialty Start Date End Date Hong Gibbs MD [address] [place] [address], [phone] PCP - General Family Medicine 06/18/24 documented as of this encounter
--- OUTSIDE RECORDS SUMMARY | 2024-12-03 14:28 | XMS_ITS | Clinical Summary ---
Author Organization [facility] Address [address] [place] [address] Care Team Providers Care Corporate Accounting Manager Name Role Phone Neeta Guzman MD Primary Care Provider [phone] Allergies Active Allergy Reactions Criticality Noted Date [...] 86 08/04/2022 11:07 AM EDT Temperature 36.2 C (97.2 F) 08/04/2022 11:07 AM EDT Respiratory Rate - - Oxygen Saturation 98% [...] years 1-dose series) 2023 Influenza Vaccine (#1) 2025 Hepatitis B Vaccines Aged Out No long er eligible based on patient's age to complete this topic RSV Ped < 20 months Aged Out No longe r eligible based on patient's age to complete this topic Care Teams Corporate Accounting Manager Relationship Specialty Start Date End Date Neeta Guzman MD 175 [facility] [address] [place] [phone] PCP - General Internal Medicine 12/19/20
== END 2024-12-03 14:09 | disposition home or self-care (01) ==
LOC: HO.HPS 13:41
PROVIDERS: PCP Student in an Organized Health Care Education/Training Program; Visit Provider Internal Medicine Pulmonary Disease
DX: J45.909 Unspecified asthma, uncomplicated (principal); D86.9 Sarcoidosis, unspecified; J30.9 Allergic rhinitis, unspecified
CPT/HCPCS: 99214

== ENCOUNTER → 2024-12-03 13:40 | Outpatient (BNVA) | payer MEDICAID, SELFPAY | PROVIDERS: PCP Student in an Organized Health Care Education/Training Program; Visit Provider Internal Medicine Pulmonary Disease | DX: D86.9 Sarcoidosis, unspecified (principal); J45.909 Unspecified asthma, uncomplicated | CPT/HCPCS: 99212 ==

== ENCOUNTER 2025-02-27 12:35 | Outpatient (REF) | payer MEDICAID, SELFPAY ==
--- NOTE | 2025-02-27 | EMG_ITS ---
Chief complaint: Right hand numbness. History of cervical surgeries 2001 and 2009; thoracic outlet surgery 1993. Reason for referral: Evaluate for ulnar neuropathy Referred by: Asad PEDROZA Procedure done: Right upper extremity NCS/EMG Precautions and/or limitations: Previous cervical surgeries The limb temperature was monitored continuously and remained between 32-36 degrees C during the performance of the NCS. Nerve Conduction Studies Anti Sensory Summary Table ?Stim Site NR Onset (ms) Norm Onset (ms) Peak (ms) Norm Peak (ms) O-P Amp (?V) Norm O-P Amp Site1 Site2 Delta-0 (ms) Dist (cm) Aguila (m/s) Norm Aguila (m/s) Right Lat Ante Brach Cutan Anti Sensory (Lat Forearm) Lat Biceps ? 2.2 4.2 32.2 Lat Biceps Lat Forearm 2.2 0.0 Right Med Ante Brach Cutan Anti Sensory (Med Forearm) Elbow ? 3.2 4.1 27.2 Elbow Med Forearm 3.2 0.0 Right Median Anti Sensory (2nd Digit) Wrist ? 3.2 4.3 <3.6 26.3 >10 Wrist 2nd Digit 3.2 14.0 44 Right Ulnar Anti Sensory (5th Digit) Wrist ? 2.2 2.9 <3.7 24.7 >15.0 Wrist 5th Digit 2.2 14.0 64 Motor Summary Table ?Stim Site NR Onset (ms) Norm Onset (ms) O-P Amp (mV) Norm O-P Amp iAmp (mV) Amp (1st) (%) Site1 Site2 Delta-0 (ms) Dist (cm) Aguila (m/s) Norm Aguila (m/s) Right Median Motor (Abd Poll Brev) Wrist ? 3.7 <3.9 6.4 >4.5 8.1 100.0 Elbow Wrist 4.3 21.0 49 >45 Elbow ? 8.0 6.3 8.0 98.4 Right Ulnar Motor (Abd Dig Minimi) Wrist ? 2.7 <3.0 6.9 >5 8.4 100.0 B Elbow Wrist 3.5 18.0 51 >45 B Elbow ? 6.2 6.7 8.2 97.1 A Elbow B Elbow 1.8 10.0 56 >45 A Elbow ? 8.0 6.5 8.1 94.2 Comparison Summary Table ?Stim Site NR Peak (ms) Norm Peak (ms) P-T Amp (?V) Site1 Site2 Delta-P (ms) Norm Delta (ms) Right Median/Radial Dig I Comparison (Digit 1 - 10cm) Median ? 3.3 <2.9 41.8 Median Radial 0.9 Radial ? 2.4 <2.8 8.6 EMG ?Side Muscle Nerve Root Ins Act Fibs Psw Amp Dur Poly Recrt Int Pat Comment Right 1stDorInt Ulnar C8-T1 Nml Nml Nml Nml Nml 0 Nml Complete Right FlexCarRad Median C6-7 Nml Nml Nml Nml Nml 0 Nml Complete Right Biceps Musculocut C5-6 Nml Nml Nml Nml Nml 0 Nml Complete Right Triceps Radial C6-7-8 Nml Nml Nml Nml Nml 0 Nml Complete Right Deltoid Axillary C5-6 Nml Nml Nml Nml Nml 0 Nml Complete FINDINGS: All motor and sensory nerves tested showed normal latencies, amplitudes and conduction velocities. Concentric needle EMG was performed in selected muscles of the right upper extremity. Study did not reveal signs of electric abnormalities as shown in the table above. IMPRESSION: 1. This is a normal study. 2. There is no electrodiagnostic evidence for median neuropathy, ulnar neuropathy, brachial plexopathy, or cervical radiculopathy. Thank you for your kind referral. Ruth Jacobson MD, JORDAN Board Certified, [place] [employer] and [employer] (ABPMR) Board Certified, [place] [employer] Electrodiagnostic Medicine (ABEM) CODIN [address] MTDD
--- OUTSIDE RECORDS SUMMARY | 2025-02-27 15:48 | XMS_ITS | Encounter Summary ---
Author Organization [facility] Address [address] [place] [address] Care Team Providers Care Customer Operations Specialist Name Role Phone Hong Gibbs MD Primary Care Provider [phone] Encounter Details Date Type Department Care Team (Late Contact Info) Description 04/02/2024 Lab Requisition [facility] - Main Lab [address] [facility] [place] [phone] Claudia Sterling MD [address] [place], [place] [id number] Type 2 diabetes mellitus without complications (CMS/HCC [...] Department Care Team (Late Contact Info) Description 03/15/2025 9:15 AM EDT Office Visit Orthopedic Surgery - [place] [address] [facility] [address] [place] [phone] Digna Butler MD [address] [place] [phone] documented as of this encounter Procedures Procedure [...] LAB CHEMISTRY METHOD 04/03/2024 3:04 PM EST [facility] Mean Bld Glu Estim. 143 mg/dL LAB CHEMISTRY METHOD 04/03/2024 3:04 PM [facility] Blood Venous blood specimen / Unknown Venipuncture / Unknown 04/02/2024 9:34 AM EST 04/02/2024 10:55 AM EST us Claudia Sterling MD LAB BLOOD ORDERABLES Final Resul t [facility] [address] [place] [address], * Lipid panel with reflex to direct LDL (04/02/2024 9:34 AM EST) Cholesterol 171 0 - 200 mg/dL LAB CHEMISTRY METHOD 04/02/2024 12:03 PM EST [facility] Triglycerides 125 0 - 150 mg/dL LAB CHEMISTRY METHOD 04/02/2024 12:03 PM EST [facility] HDL 77 >=40 mg/dL LAB CHEMISTRY METHOD 04/02/2024 12:03 PM [facility] LDL Calculated 69 0 - 100 mg/dL LAB CHEMISTRY METHOD 04/02/2024 12:03 PM [facility] VLDL Cholesterol Larry 25 mg/dL LAB CHEMISTRY METHOD 04/02/2024 12:03 PM [facility] Non HDL Chol. (LDL+VLDL) 94 <145 mg/dL LAB CHEMISTRY METHOD 04/02/2024 12:03 PM [facility] Chol/HDL Ratio 2.2 0.0 - 4.4 LAB CHEMISTRY METHOD 04/02/2024 12:03 PM [facility] Blood Venous blood specimen / Unknown Venipuncture / Unknown 04/02/2024 9:34 AM EST 04/02/2024 10:55 AM EST us Claudia Sterling MD LAB BLOOD ORDERABLES Final Resul t [facility] [address] [place] [address], * (ABNORMAL) Basic metabolic panel (04/02/2024 9:34 AM EST) Sodium 141 133 - 145 mmol/L LAB CHEMISTRY METHOD 04/02/2024 11:53 AM [facility] Potassium 4.2 3.5 - 5.5 mmol/L LAB CHEMISTRY METHOD 04/02/2024 11:53 AM [facility] Chloride 111(H) 96 - 110 mmol/L LAB CHEMISTRY METHOD 04/02/2024 11:53 AM [facility] CO2 22 21 - 32 mmol/L LAB CHEMISTRY METHOD 04/02/2024 11:53 AM [facility] Anion Gap 8 3 - 11 LAB CHEMISTRY METHOD 04/02/2024 11:53 AM [facility] Glucose 178(H) 70 - 100 mg/dL LAB CHEMISTRY METHOD 04/02/2024 11:53 AM [facility] BUN 13 5 - 25 mg/dL LAB CHEMISTRY METHOD 04/02/2024 11:53 AM [facility] Creatinine 0.98 0.50 - 1.10 mg/dL LAB CHEMISTRY METHOD 04/02/2024 11:53 AM [facility] eGFR 66 >=60 mL/min/1. 73m2 LAB CHEMISTRY METHOD 04/02/2024 11:53 AM [facility] Comment:Calculation based on the Chronic Kidney Disease Epidemiology Collaboration (CKD-EPI) equation refit without adjustment for race. BUN/Creatinine Ratio 13.3 LAB CHEMISTRY METHOD 04/02/2024 11:53 AM [facility] Calcium 9.9 8.5 - 10.5 mg/dL LAB CHEMISTRY METHOD 04/02/2024 11:53 AM [facility] Blood Venous blood specimen / Unknown Venipuncture / Unknown 04/02/2024 9:34 AM EST 04/02/2024 10:55 AM EST us Claudia Sterling MD LAB BLOOD ORDERABLES Final Resul t [facility] [address] [place] [address], * (ABNORMAL) Complete blood count (04/02/2024 9:34 AM EST) WBC 6.6 4.8 - 10.8 K/mcL LAB HEMETOLOGY METHOD 04/02/2024 11:06 AM [facility] RBC 5.00(H) 3.80 - 4.80 M/mcL LAB HEMETOLOGY METHOD 04/02/2024 11:06 AM [facility] Hemoglobin 15.4 11.5 - 16.0 g/dL LAB HEMETOLOGY METHOD 04/02/2024 11:06 AM [facility] Hematocrit 46.5 35.0 - 47.0 % LAB HEMETOLOGY METHOD 04/02/2024 11:06 AM [facility] MCV 93.4 79.0 - 98.0 FL LAB HEMETOLOGY METHOD 04/02/2024 11:06 AM [facility] MCH 30.9 27.0 - 32.0 pcg LAB HEMETOLOGY METHOD 04/02/2024 11:06 AM EST [facility] MCHC 33.1 32.0 - 37.0 g/dL LAB HEMETOLOGY METHOD 04/02/2024 11:06 AM [facility] RDW 13.2 11.0 - 15.0 % LAB HEMETOLOGY METHOD 04/02/2024 11:06 AM [facility] Platelets 293 130 - 400 K/mcL LAB HEMETOLOGY METHOD 04/02/2024 11:06 AM [facility] MPV 10.8 7.0 - 11.0 FL LAB HEMETOLOGY METHOD 04/02/2024 11:06 AM [facility] NRBC 0.0 <1.0 % LAB HEMETOLOGY METHOD 04/02/2024 11:06 AM [facility] NRBC Absolute 0.00 <0.10 K/mcL LAB HEMETOLOGY METHOD 04/02/2024 11:06 AM [facility] Blood Venous blood specimen / Unknown Venipuncture / Unknown 04/02/2024 9:34 AM EST 04/02/2024 10:55 AM EST us Claudia Sterling MD LAB BLOOD ORDERABLES Final Resul t [facility] [address] [place] [address], documented in this encounter Visit Diagnoses Diagnosis Type 2 diabetes mellitus without complications (CMS/HCC V24, CMS/HCC V28) documented in this encounter Care Teams Customer Operations Specialist Relationship Specialty Start Date End Date Hong Gibbs MD [address] [place] [address], [phone] PCP - General Family Medicine 06/18/24 documented as of this encounter
--- OUTSIDE RECORDS SUMMARY | 2025-02-27 15:48 | XMS_ITS ---
Author Name [facility] Organization Unknown Care Team Organization Name Specialty Phone Email Start Date End Da te [facility] 03/23/2022 01/02/20 24
--- OUTSIDE RECORDS SUMMARY | 2025-02-27 15:48 | XMS_ITS | Clinical Summary ---
Author Organization [facility] Address [address] [place] [address] Phone Care Team Providers Care Cryptologic Supervisor Name Role Phone Hong Gibbs MD Primary Care Provider [phone] Allergies Active Allergy Reactions Criticality Noted Date Comments Bee Venom Protein (Honey Bee) Anaphylaxis High 01/06 Onion Anaphylaxis High 08/30/2018 Medications flash glucose scanning reader (FreeStyle Ana Cristina 2 Cameron) misc 1 Device by Does not apply [...] 4 g topically 2 times daily. Active DULoxetine (CYMBALTA) [address] capsule Take 60 mg by mouth daily. Active EPINEPHrine (EpiPen 2-Ronnie) 0.3 mg/0.3 mL injection Inject 0.3 mL (0.3 mg total) into the thigh. 4 Active fluticasone propionate (FLONASE) 50 mcg/actuation nasal [...] 1 tablet (50 mg total) by mouth. 8 Active triamcinolone acetonide (KENALOG-40) 40 mg/mL injection 1 mL by Other route once for 1 dose. Active Jardiance 10 mg tablet 4 Active lamoTRIgine (LaMICtal) 25 mg tablet Take by mouth. Active Active Problems Problem Noted Date Diagnosed Date Numbness and tingling in both hands 09/24/2024 Carpal tunnel syndrome of right wrist 04/10/2024 Occipital neuralgia of right side 03/30/2024 Assessment & Plan (03/30/2024 2:30 PM EST): Ms. Donovan describes neck pain with radiation up the back of her head, sometimes going all the way to the right eye. She has a right upper extremity tremor and is otherwise neurologically intact. She had reproduction of the neck pain and headache with palpation of the right skull base. The MRI of the cervical spine from [facility]. In February revealed evidence of her prior C5-6 and C6-7 anterior cervical fusions. She has mild degenerative changes in the mid and upper cervical spine without any significant stenosis. I think she is suffering with occipital neuralgia. I will refer her to Dr. Rodriges for consideration of an occipital nerve block Type 2 diabetes mellitus wit h neurological manifestations ([facility] V24, [facility] V28) 02/28/2024 Asthma 02/28/2024 COPD (chronic obstructive pu lmonary disease) ([facility] V24, [facility] V28) 02/28/2024 Depression 02/28/2024 Overview (02/28/2024): Has a Therapist and psychiatrist at [facility] 03/01/2023 Overview (02/28/2024): Seen in [place] Dr. Jimenez, Obesity (BMI 30-39.9) 03/01/2023 Fibromyalgia 03/01/2023 Cervical radiculopathy 03/01/2023 Peripheral neuropathy 11/01/2017 Atypical squamous cell craft es of cervix undetermined significance favor benign 05/30/2013 Overview (02/28/2024): 07/2023 PAp ASS, neg HPV Per ASCCP RECOMMENDATION 3-year follow-up HPV-based screening at follow-up visit RISK 5 year risk of CIN3+ is 0.40% REFERENCES Obstructive sleep apnea 11/07/2012 Vitamin D deficiency 09/09/2011 Allergic rhinitis 07/23/2010 Encounters Date Type Department Care Team Description 01/22/2025 10:33 AM EDT - 01/22/2025 11:59 PM EDT Hospital Encounter [facility] Xray [address] [place] [phone] Pain Discharge Disposition: Home or Self Care 01/22/2025 9:57 AM EDT Anesthesia Event [facility] Pain Management [address] [place] [address] Cristian Carter MD 01/22/2025 8:47 AM EDT - 01/22/2025 11:59 PM EDT Hospital Encounter [facility] Pain Management [address] [place] [address] Jay Rodriges DO Slanda, Summer, Cristian Lainez MD Cervicalgia Discharge Disposition: Home or Self Care 12/06/2024 Lab Requisition [facility] Lab [address] [place] [address] Hong Gibbs MD Chronic obstructive pulmonary disease, unspecified ([facility] V24, [facility] V28) 12/05/2024 Lab Requisition [facility] [address] [place] [address] Hong Gibbs MD Chronic obstructive pulmonary disease, unspecified ([facility] V24, [facility] V28) from Last 3 Months Immunizations Immunization Administration Dates Next Due Influenza Quadravalent, MDCK , 0.5ml, preservative free (Flucelvax) 6mo and older 03/01/2023 [employer] SARS-CoV-2 COVID-19, mRNA, LNP-S, preservative free 12/30/2020,12/09/2020 [...] axillary node dissection; colloid carcinoma, ER & HI +, HER2 negative BREAST BIOPSY 11/24/2016 Left mucinous carcinoma OVARIAN CYST REMOVAL THORACIC OUTLET SURGERY 05/16/1993 - 05/15/1994 Medical History Medical History Date Comments Asthma DX:Asthma COPD (chronic obstructive pu lmonary disease) ([facility] V24, [facility] V28) DX:COPD (chronic o bstructive pulmonary disease) ([facility]) Depression DX:Depression Morbid obesity with BMI of 4 0.0-44.9, adult ([facility] V24, [facility] V28) 06/21/2018 DX:Morbid obesity wit h BMI of 40.0-44.9, adult ([facility]) Allergic rhinitis 07/23/2010 DX:Allergic rh initis Atypical squamous cell craft es of cervix undetermined significance favor benign 05/30/2013 DX:Atypical squamous cell ch anges of cervix undetermined significance favor benign Obstructive sleep apnea 11/07/2012 DX:Obstr uctive sleep apnea Peripheral neuropathy 11/01/2017 DX:Periphe ral neuropathy Postlaminectomy syndrome, ce rvical region 10/01/2010 DX:Postlaminectomy syndrome, cervical region Type 2 diabetes mellitus wit h neurological manifestations ([facility] V24, [facility] V28) DX:Type 2 diabetes mellitus with neurological manifestations ([facility]) Vitamin D deficiency 09/09/2011 DX:Vitamin D deficiency Malignant neoplasm of left b reast in female, estrogen receptor positive ([facility] V24, [facility] V28) 08/30/2018 DX:Malignant neoplasm of le ft breast in female, estrogen receptor positive ([facility]) History of cancer of left breast 08/30/2018 DX:History of cancer of left breast; COMMENT: 12/2016 S/p lumpectomy and radiation, no hormonal treatment was recommended; Estrogen receptor + Sarcoidosis Family History Medical History Relation Name Comments [...] drink = 0.6 oz pur e alcohol) rarely Interpersonal Safety Answer Date Record ed Physical Abuse Unrecognized value 01/22/2025 Verbal Abuse Unrecognized value 01/22/2025 Comments No Sex and Gender Information Value Date Recorded Sex Assigned at Not on file Legal Sex Female 10:20 PM EST Gender Identity Not on file Sexual Orientation Not on file Obstetrics History Last Filed Vital Signs Vital Sign Reading Time Taken Comments Blood Pressure 146/79 01/22/2025 11:01 AM EDT Pulse 74 01/22/2025 11:01 AM EDT Temperature 36.6 C (97.8 F) 01/22/2025 10:24 AM EDT Respiratory Rate 16 01/22/2025 10:48 AM EDT Oxygen Saturation 98% 01/22/2025 11:01 AM EDT Inhaled Oxygen Concentration - - Weight 87.1 kg (192 lb) 01/22/2025 9:02 AM EDT Height 167.6 cm (5' 6 ) 01/22/2025 9:02 AM EDT Body Mass Index 30.99 01/22/2025 9:02 AM EDT Plan of Treatment Upcoming Encounters Date Type Department Care Team (Late st Contact Info) Description 03/15/2025 9:15 AM EDT Office Visit Orthopedic Surgery - [place] [address] [place] [address] Digna [place] MD [address] [place] [phone] Health Maintenance Due Date Last Done Comments Colorectal Cancer Screening: Colonoscopy 1965 Diabetes: Annual Foot Exam 10/29/1973 Diabetes: Annual Retina Eye Exam 10/29/1973 Zoster Vaccines (1 of 2) 10/29/1982 Pneumococcal Vaccine: 50+ Years (2 of 2 - PCV) 06/01/2013 06/01/2012 RSV Immunization Adult Patients (1 - Risk 50-74 years 1-dose series) 10/29/2013 HIV Screening 04/24/2022 Social Influencers of Health Screening 04/24/2022 DTaP,Tdap,and Td Vaccines (3 - Td or Tdap) 06/01/2022 06/01/2012, 05/20/2008 Depression Screening 05/16/2024 07/15/2023 COVID-19 Vaccine (4 - Mixed Product risk season) 2025 06/07/2024, 12/30/2020, 12/09/2020 Influenza Vaccine (#1) 2025 02/03/2024, 2022 Diabetes: Blood Sugar Control Test (HGBA1C) 06/07/2025 12/05/2024, 04/02/2024, 08/31/2023 Diabetes: Annual GFR (Glomerular Filtration Rate) 08/02/2025 08/02/2024, 04/02/2024, 10/04/2023, Additional history exists Diabetes: Annual Urine Albumin-Creatinine Ratio (uACR) 12/06/2025 12/06/2024, 08/31/2023 Breast Cancer Screening 12/20/2025 12/21/19, 12/15/2022, 12/11/2021, [...] patient's age to complete this topic Meningococcal B Vaccine Aged Out No l onger eligible based on patient's age to complete this topic RSV Immunization Patients Under 20 months Aged Out No longer eligible based on patient's age to complete this topic Varicella Vaccines Aged Out No longer eligible based on patient's age to complete this topic Procedures Procedure Name Priority Date/Time Associated Diagnosis Comments POCT GLUCOSE BLOOD Routine 01/22/2025 8: 59 AM EDT MICROALBUMIN CREATININE URINE RATIO Routine 12/06/2024 12:00 AM EDT Chronic obstructive pulmonary disease, unspecified (CMS/HCC V24, CMS/HCC V28) CALCIUM Routine 12/05/2024 6:15 AM EDT Chronic obstructive pulmonary disease, unspecified (CMS/HCC V24, CMS/HCC V28) VITAMIN D 25 HYDROXY Routine 12/05/2024 6:15 AM EDT Chronic obstructive pulmonary disease, unspecified (CMS/HCC V24, CMS/HCC V28) VITAMIN B12 Routine 12/05/2024 6:15 AM EDT Chronic obstructive pulmonary disease, unspecified (CMS/HCC V24, CMS/HCC V28) THYROID STIMULATING HORMONE Routine 12/05/2024 6:15 AM EDT Chronic obstructive pulmonary disease, unspecified (CMS/HCC V24, CMS/HCC V28) FOLATE Routine 12/05/2024 6:15 AM EDT Chronic obstructive pulmonary disease, unspecified (CMS/HCC V24, CMS/HCC V28) HEMOGLOBIN A1C Routine 12/05/2024 6:15 AM EDT Chronic obstructive pulmonary disease, unspecified (CMS/HCC V24, CMS/HCC V28) COMPLETE BLOOD COUNT Routine 12/05/2024 6:15 AM EDT Chronic obstructive pulmonary disease, unspecified (CMS/HCC V24, CMS/HCC V28) BASIC METABOLIC PANEL Routine 08/02/2024 6:30 AM EDT Chronic obstructive pulmonary disease, unspecified (CMS/HCC) LIPID PANEL WITH REFLEX TO DIRECT LDL Routine 04/02/2024 9:34 AM EST Type 2 diabetes mellitus without complications (CMS/HCC) HERSON SCREENING DIGITAL Routine 12/21/2023 3:40 PM EDT Encounter for screening mammogram for malignant neoplasm of breast HEPATITIS C SCREENING Routine 08/31/2023 DEPRESSION SCREENING Routine 07/15/2023 HM HPV Routine 07/15/2023 from Last 3 Months or Most Recently Relevant to Health Maintenance Results * (ABNORMAL) POCT Glucose, blood (01/22/2025 8:59 AM EDT) Glucose POCT 385(H) 70 - 100 mg/dL 01/22/2025 9:00 AM EDT [facility] Blood Capillary blood specimen / Unknown 01/22/2025 8:59 AM EDT 01/22/2025 9:01 AM EDT us Cristian Carter MD LAB POINT OF CARE TE ST DOCKED DEVICE UNSOLICITED RESULTS Final Result Performing Organization Address [facility] de Phone Number [facility] [address] [place] [address], * Microalbumin creatinine urine ratio (12/06/2024 12:00 AM EDT) Creatinine, Urine 27.0 mg/dL LAB CHEMISTRY METHOD 12/06/2024 11:20 AM EDT [facility] Microalb, Ur <5.0 0.0 - 29.0 mg/L LAB CHEMISTRY METHOD 12/06/2024 11:20 AM EDT [facility] Microalb/Creat Ratio <19 <30 mg/g creat LAB CHEMISTRY METHOD 12/06/2024 11:20 AM EDT [facility] Urine Urine specimen obtained by clean catch procedure / Unknown 12/06/2024 12/06/2024 9:55 AM EDT us Hong Gibbs MD LAB URINE ORDERABLES Final Resul t Performing Organization Address [facility]/ZIP Co de Phone Number [facility] [address] [place] [address], [place] [phone] * Vitamin D 25 hydroxy (12/05/2024 6:15 AM EDT) Pathologist [facility] Vit D, 25-Hydroxy 48.6 30.0 - 80.0 ng/mL LAB CHEMISTRY METHOD 12/05/2024 11:46 AM EDT [facility] Blood Venous blood specimen / Unknown Venipuncture / Unknown 12/05/2024 6:15 AM EDT 12/05/2024 9:21 AM EDT us Hong Gibbs MD LAB BLOOD ORDERABLES Final Resul t [facility] [address] [place] [address], [place] [phone] * (ABNORMAL) Complete blood count (12/05/2024 6:15 AM EDT) [facility] WBC 7.1 4.8 - 10.8 K/mcL LAB HEMETOLOGY METHOD 12/05/2024 9:55 AM EDT [facility] RBC 4.60 3.80 - 4.80 M/[facility] LAB HEMETOLOGY METHOD 12/05/2024 9:55 AM EDT [facility] Hemoglobin 13.8 11.5 - 16.0 g/dL LAB HEMETOLOGY METHOD 12/05/2024 9:55 AM EDT [facility] Hematocrit 41.8 35.0 - 47.0 % LAB HEMETOLOGY METHOD 12/05/2024 9:55 AM EDT [facility] MCV 91.5 79.0 - 98.0 FL LAB HEMETOLOGY METHOD 12/05/2024 9:55 AM EDT [facility] MCH 30.2 27.0 - 32.0 pcg LAB HEMETOLOGY METHOD 12/05/2024 9:55 AM EDT [facility] MCHC 33.0 32.0 - 37.0 g/dL LAB HEMETOLOGY METHOD 12/05/2024 9:55 AM EDT [facility] RDW 13.2 11.0 - 15.0 % LAB HEMETOLOGY METHOD 12/05/2024 9:55 AM EDT [facility] Platelets 259 130 - 400 K/mcL LAB HEMETOLOGY METHOD 12/05/2024 9:55 AM EDT [facility] MPV 11.3(H) 7.0 - 11.0 FL LAB HEMETOLOGY METHOD 12/05/2024 9:55 AM EDT [facility] NRBC 0.0 <1.0 % LAB HEMETOLOGY METHOD 12/05/2024 9:55 AM EDT [facility] NRBC Absolute 0.00 <0.10 K/mcL LAB HEMETOLOGY METHOD 12/05/2024 9:55 AM EDT [facility] Blood Venous blood specimen / Unknown Venipuncture / Unknown 12/05/2024 6:15 AM EDT 12/05/2024 9:21 AM EDT us Hong Gibbs MD LAB BLOOD ORDERABLES Final Resul t Performing Organization Address City/[facility]/ZIP Co de Phone Number [facility] [address] [place] [address], * Thyroid stimulating hormone (12/05/2024 6:15 AM EDT) TSH 1.54 0.40 - 4.00 mcIU/mL LAB CHEMISTRY METHOD 12/05/2024 11:46 AM EDT [facility] Blood Venous blood specimen / Unknown Venipuncture / Unknown 12/05/2024 6:15 AM EDT 12/05/2024 9:21 AM EDT us Hong Gibbs MD LAB BLOOD ORDERABLES Final Resul t [facility] [address] [place] [address], [place] [phone] * (ABNORMAL) Hemoglobin A1c (12/05/2024 6:15 AM EDT) [facility] Hemoglobin A1C 7.8(H) <6.5 % LAB CHEMISTRY METHOD 12/05/2024 12:18 PM EDT [facility] Mean Bld Glu Estim. 177 mg/dL LAB CHEMISTRY METHOD 12/05/2024 12:18 PM EDT [facility] Blood Venous blood specimen / Unknown Venipuncture / Unknown 12/05/2024 6:15 AM EDT 12/05/2024 9:21 AM EDT Hong Gibbs MD LAB BLOOD ORDERABLES Final Resul t Performing Organization Address City/[facility]/ZIP Co de Phone Number [facility] [address] [place] [address], * Folate (12/05/2024 6:15 AM EDT) [facility] Folate 9.9 2.8 - 17.0 ng/ml LAB CHEMISTRY METHOD 12/05/2024 11:04 AM EDT [facility] Blood Venous blood specimen / Unknown Venipuncture / Unknown 12/05/2024 6:15 AM EDT 12/05/2024 9:21 AM EDT Hong Gibbs MD LAB BLOOD ORDERABLES Final Resul t [facility] [address] [place] [address], [place] [phone] * Vitamin B12 (12/05/2024 6:15 AM EDT) [facility] Vitamin B-12 284 250 - 900 pcg/mL LAB CHEMISTRY METHOD 12/05/2024 11:04 AM EDT [facility] Blood Venous blood specimen / Unknown Venipuncture / Unknown 12/05/2024 6:15 AM EDT 12/05/2024 9:21 AM EDT Hong Gibbs MD LAB BLOOD ORDERABLES Final Resul t Performing Organization Address [facility]/ZIP Co de Phone Number [facility] [address] [place] [address], [place] [phone] * Calcium (12/05/2024 6:15 AM EDT) Calcium 8.9 8.5 - 10.5 mg/dL LAB CHEMISTRY METHOD 12/05/2024 10:39 AM EDT [facility] Blood Venous blood specimen / Unknown Venipuncture / Unknown 12/05/2024 6:15 AM EDT 12/05/2024 9:21 AM EDT Hong Gibbs MD LAB BLOOD ORDERABLES Final Resul t Performing Organization Address [facility]/ZIP Co de Phone Number [facility] [address] [place] [address], [place] [phone] * (ABNORMAL) Basic metabolic panel (08/02/2024 6:30 AM EDT) Sodium 139 133 - 145 mmol/L LAB CHEMISTRY METHOD 08/02/2024 9:51 AM EDT [facility] Potassium 4.2 3.5 - 5.5 mmol/L LAB CHEMISTRY METHOD 08/02/2024 9:51 AM EDT [facility] Chloride 106 96 - 110 mmol/L LAB CHEMISTRY METHOD 08/02/2024 9:51 AM EDT [facility] CO2 29 21 - 32 mmol/L LAB CHEMISTRY METHOD 08/02/2024 9:51 AM EDT [facility] Anion Gap 4 3 - 11 LAB CHEMISTRY METHOD 08/02/2024 9:51 AM [facility] Glucose 148(H) 70 - 100 mg/dL LAB CHEMISTRY METHOD 08/02/2024 9:51 AM [facility] BUN 12 5 - 25 mg/dL LAB CHEMISTRY METHOD 08/02/2024 9:51 AM [facility] Creatinine 1.05 0.50 - 1.10 mg/dL LAB CHEMISTRY METHOD 08/02/2024 9:51 AM [facility] eGFR 61 >=60 mL/min/1. 73m2 LAB CHEMISTRY METHOD 08/02/2024 9:51 AM [facility] Comment:Calculation based on the Chronic Kidney Disease Epidemiology Collaboration (CKD-EPI) equation refit without adjustment for race. BUN/Creatinine Ratio 11.4 LAB CHEMISTRY METHOD 08/02/2024 9:51 AM [facility] Calcium 9.7 8.5 - 10.5 mg/dL LAB CHEMISTRY METHOD 08/02/2024 9:51 AM [facility] Blood Venous blood specimen / Unknown Venipuncture / Unknown 08/02/2024 6:30 AM EDT 08/02/2024 9:01 AM EDT us Hong Gibbs MD LAB BLOOD ORDERABLES Final Resul t [facility] [address] [place] [address], * Lipid panel with reflex to direct LDL (04/02/2024 9:34 AM EST) Cholesterol 171 0 - 200 mg/dL LAB CHEMISTRY METHOD 04/02/2024 12:03 PM EST [facility] Triglycerides 125 0 - 150 mg/dL LAB CHEMISTRY METHOD 04/02/2024 12:03 PM [facility] HDL 77 >=40 mg/dL LAB CHEMISTRY METHOD 04/02/2024 12:03 PM [facility] LDL Calculated 69 0 - 100 mg/dL LAB CHEMISTRY METHOD 04/02/2024 12:03 PM EST [facility] VLDL Cholesterol Larry 25 mg/dL LAB CHEMISTRY METHOD 04/02/2024 12:03 PM EST [facility] Non HDL Chol. (LDL+VLDL) 94 <145 mg/dL LAB CHEMISTRY METHOD 04/02/2024 12:03 PM EST [facility] Chol/HDL Ratio 2.2 0.0 - 4.4 LAB CHEMISTRY METHOD 04/02/2024 12:03 PM EST [facility] Blood Venous blood specimen / Unknown Venipuncture / Unknown 04/02/2024 9:34 AM EST 04/02/2024 10:55 AM EST us Claudia Sterling MD LAB BLOOD ORDERABLES Final Resul t [facility] [address] [place] [address], * HERSON SCREENING DIGITAL (12/21/2023 3:40 PM EDT) Anatomical Region Laterality Modality Mammography 12/21/2023 11:0 6 AM EDT Narrative 12/21/2023 3:40 PM EDT Diagnostic Imaging Department [address] [place] [address] Patient: CALI DONOVAN/Age/Sex: 1965 - 58 - F Unit#: [id number] Location/Status: SPDIMAM/REG CLI Mnemonic/[facility] Physician: ROMAIN MIRANDA MD [facility] Screening Digital - 12/21/23 - 1137 Report Status:Signed EXAM: [facility] Screening Digital EXAM DATE AND TIME: 12/21/2023 11:38 AM HISTORY: Screening. Personal history of left breast carcinoma treated with lumpectomy in 2017 followed by radiation treatment. COMPARISON: 12/15/22, 12/11/21, 11/18/20 TECHNIQUE: Bilateral digital breast tomosynthesis was performed in the CC and MLO projections. Computer aided detection with Spotlight 3D 3.1 was employed. TISSUE DENSITY: a. [...] appearance of the breasts. No evidence of malignancy is seen. A negative mammogram in the presence of a clinically suspicious palpable abnormality does not preclude the possibility of malignancy or alter the indications for biopsy. BI-RADS: Category 2: Benign RECOMMENDATION(S): 1: Routine screening mammogram BILATERAL in 1 year. Dictating Physician: KIM ROSARIO MD Electronically Signed by: KIM ROSARIO MD Dic Date/Time: 12/21/23 1539 Sign date/Time: 12/21/23 1540 Procedure Note Kim Rosario MD - 02/29/2024 Diagnostic Imaging Department [address] [place] [address] Patient: CALI DONOVAN /Age/Sex: 1965 - 58 - F Unit#: [id number] Location/Status: SPDIMAM/REG CLI Mnemonic/Ordering Site: [facility] Ordering Physician: ROMAIN MIRANDA MD [facility] Screening Digital - 12/21/23 - 1137 Report Status:Signed EXAM: [facility] Screening Digital EXAM DATE AND TIME: 12/21/2023 11:38 AM HISTORY: Screening. Personal history of left breast carcinoma treatedwith lumpectomy in 2017 followed by radiation treatment. COMPARISON: 12/15/22, 12/11/21, 11/18/20 TECHNIQUE: Bilateral digital breast tomosynthesis was performed in the CCand MLO projections. Computer aided detection with Spotlight 3D 3.1was employed. TISSUE DENSITY: a. The [...] Physician: KIM ROSARIO MD Electronically Signed by: IKM ROSARIO MD Dic Date/Time: 12/21/23 1539 Sign date/Time: 12/21/23 1540 Romani Miranda MD IMG BI PROCEDURES Final Result * Hepatitis C Screening (08/31/2023) Hepatitis C Screening abstracted Historical Provider HEALTH MAINTENANCE Final Result * Cervical Cancer Screening: HPV (07/15/2023) Pathologist [facility] Cervical Cancer Screening: HPV negative interpretation abstracted Historical Provider HEALTH MAINTENANCE Final Result * Depression Screening (07/15/2023) Depression Screening abstracted Historical Provider HEALTH MAINTENANCE Final Result from Last 3 Months or Most Recently Relevant to Health Maintenance Insurance MEDICAID [place] Advance Directives Documents on File Type Date Recorded Patient Firer Portable Boiler Expl 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
--- OUTSIDE RECORDS SUMMARY | 2025-02-27 15:48 | XMS_ITS | Clinical Summary ---
Author Organization [facility] Address [address] [place] [address] Care Team Providers Care Supervisor [employer] Name Role Phone Neeta Guzman MD Primary Care Provider [phone] Allergies Active Allergy Reactions Criticality Noted Date [...] age to complete this topic Care Teams Supervisor [employer] Relationship Specialty Start Date End Date Neeta Guzman MD [address] [facility] [address] [place] [phone] PCP - General Internal Medicine 12/19/20
--- OUTSIDE RECORDS SUMMARY | 2025-02-27 15:49 | XMS_ITS | Encounter Summary ---
Author Organization [facility] Address [address] [place] [address] Care Team Providers Care Granite Polisher Apprentice Name Role Phone Neeta Guzman MD Primary Care Provider [phone] Encounter Details Date Type Department Care Team Description 02/24/2021 Nurse Only [facility] Oncology Services [address] [place] [address] Augustus Andrea RN Social History Tobacco Use [...] the first available appointment is Apr. This fha underwriter sent a request to Dr. Brent Young in [place], records have been faxed and theywill reach out to the patient directly with an appointment,patient aware. documented in this encounter Plan of Treatment Not on file documented as of this encounter Visit Diagnoses Not on filedocumented in this encounter Care Teams Granite Polisher Apprentice Relationship Specialty Start Date End Date Neeta Guzman MD [address] [address] PCP - General Internal Medicine 12/19/20 documented as of this encounter
--- OUTSIDE RECORDS SUMMARY | 2025-02-27 15:49 | XMS_ITS | Encounter Summary ---
Author Organization [facility] Address [address] [place] [address] Care Team Providers Care Installation Engineer Name Role Phone Hong Gibbs MD Primary Care Provider Encounter Details Date Type Department Care Team (Late st Contact Info) Description 12/05/2024 Lab Requisition [facility] - Main Lab [address] [place] [address] Hong Gibbs MD 38 [facility] [address] [place], [phone] Chronic obstructive pulmonary disease, unspecified (CMS/HCC V24, CMS/HCC V28) Social History Tobacco Use Types Packs/Day Years Used Date Smoking Tobacco: Never Smokeless Tobacco: Never Alcohol Use Standard Drinks/Week Comments Yes 0 (1 standard drink = 0.6 oz pur e alcohol) rarely Interpersonal Safety Answer Date Record ed Physical Abuse Unrecognized value 10/09/2024 Verbal Abuse Unrecognized value 10/09/2024 Comments No Sex and Gender Information Value Date Recorded Sex Assigned at Not on file Legal Sex Female 10:20 PM EST Gender Identity Not on file Sexual Orientation Not on file documented as of this encounter Plan of Treatment Upcoming Encounters Date Type Department Care Team (Late st Contact Info) Description 03/15/2025 9:15 AM EDT Office Visit Orthopedic Surgery - [place] 175 [facility] [address] [place] [address] Digna Butler MD [address] [place] [phone] documented as of this encounter Procedures Procedure Name Priority Date/Time Associated Diagnosis Comments VITAMIN D 25 HYDROXY Routine 12/05/2024 6:15 AM EDT Chronic obstructive pulmonary disease, unspecified (CMS/[facility] V24, CMS/[facility] V28) COMPLETE BLOOD COUNT Routine 12/05/2024 6:15 AM EDT Chronic obstructive pulmonary disease, unspecified (CMS/HCC V24, CMS/[facility] V28) THYROID STIMULATING HORMONE Routine 12/05/2024 6:15 AM EDT Chronic obstructive pulmonary disease, unspecified (CMS/[facility] V24, CMS/HCC V28) HEMOGLOBIN A1C Routine 12/05/2024 6:15 AM EDT Chronic obstructive pulmonary disease, unspecified (CMS/[facility] V24, CMS/HCC V28) FOLATE Routine 12/05/2024 6:15 AM EDT Chronic obstructive pulmonary disease, unspecified (CMS/HCC V24, CMS/HCC V28) VITAMIN B12 Routine 12/05/2024 6:15 AM EDT Chronic obstructive pulmonary disease, unspecified (CMS/[facility] V24, CMS/HCC V28) CALCIUM Routine 12/05/2024 6:15 AM EDT Chronic obstructive pulmonary disease, unspecified (CMS/[facility] V24, CMS/HCC V28) documented in this encounter Results * Calcium (12/05/2024 6:15 AM EDT) Calcium 8.9 8.5 - 10.5 mg/dL LAB CHEMISTRY METHOD 12/05/2024 10:39 AM EDT [facility] ([facility]) [facility] Blood Venous blood specimen / Unknown Venipuncture / Unknown 12/05/2024 6:15 AM EDT 12/05/2024 9:21 AM EDT Hong Gibbs MD LAB BLOOD ORDERABLES Final Resul t Performing Organization Address City/[facility]/ZIP Co de Phone Number [facility] [address] [place] [address], [place] [phone] * Vitamin D 25 hydroxy (12/05/2024 6:15 AM EDT) [facility] Vit D, 25-Hydroxy 48.6 30.0 - 80.0 ng/mL LAB CHEMISTRY METHOD 12/05/2024 11:46 AM EDT [facility] Blood Venous blood specimen / Unknown Venipuncture / Unknown 12/05/2024 6:15 AM EDT 12/05/2024 9:21 AM EDT Hong Gibbs MD LAB BLOOD ORDERABLES Final Resul t Performing Organization Address [facility] Co de Phone Number [facility] [address] [place] [address], [place] [phone] * Vitamin B12 (12/05/2024 6:15 AM EDT) [facility] Vitamin B-12 284 250 - 900 pcg/mL LAB CHEMISTRY METHOD 12/05/2024 11:04 AM EDT [facility] Blood Venous blood specimen / Unknown Venipuncture / Unknown 12/05/2024 6:15 AM EDT 12/05/2024 9:21 AM EDT us Hong Gibbs MD LAB BLOOD ORDERABLES Final Resul t Performing Organization Address City/[facility]/ZIP Co de Phone Number [facility] [address] [place] [address], [place] [phone] * Thyroid stimulating hormone (12/05/2024 6:15 AM EDT) [facility] TSH 1.54 0.40 - 4.00 mcIU/mL LAB CHEMISTRY METHOD 12/05/2024 11:46 AM EDT [facility] Blood Venous blood specimen / Unknown Venipuncture / Unknown 12/05/2024 6:15 AM EDT 12/05/2024 9:21 AM EDT us Hong Gibbs MD LAB BLOOD ORDERABLES Final Resul t [facility] [address] [place] [address], [place] [phone] * Folate (12/05/2024 6:15 AM EDT) Pathologist [facility] Folate 9.9 2.8 - 17.0 ng/ml LAB CHEMISTRY METHOD 12/05/2024 11:04 AM EDT [facility] Blood Venous blood specimen / Unknown Venipuncture / Unknown 12/05/2024 6:15 AM EDT 12/05/2024 9:21 AM EDT us Hong Gibbs MD LAB BLOOD ORDERABLES Final Resul t [facility] [address] [place] [address], [place] [phone] * (ABNORMAL) Hemoglobin A1c (12/05/2024 6:15 AM EDT) Hemoglobin A1C 7.8(H) <6.5 % LAB CHEMISTRY METHOD 12/05/2024 12:18 PM EDT [facility] Mean Bld Glu Estim. 177 mg/dL LAB CHEMISTRY METHOD 12/05/2024 12:18 PM EDT [facility] Blood Venous blood specimen / Unknown Venipuncture / Unknown 12/05/2024 6:15 AM EDT 12/05/2024 9:21 AM EDT us Hong Gibbs MD LAB BLOOD ORDERABLES Final Resul t [facility] [address] [place] [address], * (ABNORMAL) Complete blood count (12/05/2024 6:15 AM EDT) [facility] Signature WBC 7.1 4.8 - 10.8 K/mcL LAB HEMETOLOGY METHOD 12/05/2024 9:55 AM EDT [facility] RBC 4.60 3.80 - 4.80 M/mcL LAB HEMETOLOGY METHOD 12/05/2024 9:55 AM EDT [facility] Hemoglobin 13.8 11.5 - 16.0 g/dL LAB HEMETOLOGY METHOD 12/05/2024 9:55 AM EDT [facility] Hematocrit 41.8 35.0 - 47.0 % LAB HEMETOLOGY METHOD 12/05/2024 9:55 AM EDT [facility] MCV 91.5 79.0 - 98.0 FL LAB HEMETOLOGY METHOD 12/05/2024 9:55 AM EDT [facility] MCH 30.2 27.0 - 32.0 pcg LAB HEMETOLOGY METHOD 12/05/2024 9:[facility] MCHC 33.0 32.0 - 37.0 g/dL LAB HEMETOLOGY METHOD 12/05/2024 9:55 AM EDT [facility] RDW 13.2 11.0 - 15.0 % LAB HEMETOLOGY METHOD 12/05/2024 9:55 AM EDT [facility] Platelets 259 130 - 400 K/mcL LAB HEMETOLOGY METHOD 12/05/2024 9:55 AM EDT [facility] MPV 11.3(H) 7.0 - 11.0 FL LAB HEMETOLOGY METHOD 12/05/2024 9:55 AM EDT [facility] NRBC 0.0 <1.0 % LAB HEMETOLOGY METHOD 12/05/2024 9:55 AM EDT [facility] NRBC Absolute 0.00 <0.10 K/mcL LAB HEMETOLOGY METHOD 12/05/2024 9:55 AM EDT [facility] Blood Venous blood specimen / Unknown Venipuncture / Unknown 12/05/2024 6:15 AM EDT 12/05/2024 9:21 AM EDT us Hong Gibbs MD LAB BLOOD ORDERABLES Final Resul t [facility] [address] [place] [address], documented in this encounter Visit Diagnoses Diagnosis Chronic obstructive pulmonary disease, unspecified (CMS/HCC V24, CMS/HCC V28) documented in this encounter Care Teams Installation Engineer Relationship Specialty Start Date End Date Hong Gibbs MD [address] [place] [address], [phone] PCP - General Family Medicine 06/18/24 documented as of this encounter
--- OUTSIDE RECORDS SUMMARY | 2025-02-27 15:49 | XMS_ITS | Encounter Summary ---
Author Organization [facility] Address [address] [place] [address] Care Team Providers Care Cane Furniture Maker Name Role Phone Hong Gibbs MD Primary Care Provider Encounter Details Date Type Department Care Team (Late Contact Info) Description 08/02/2024 Lab Requisition [facility] - Main Lab 299 [facility] [place] [phone] Hong Gibbs MD 38 [facility] [address] [place], [phone] Chronic obstructive pulmonary disease, unspecified (CMS/HCC [...] AM EDT Office Visit Orthopedic Surgery - [place] 175 [facility] [address] [place] [phone] Digna Butler MD [address] [place] [phone] documented as of this encounter Procedures Procedure Name Priority Date/Time Associated Diagnosis Comments COMPLETE BLOOD COUNT Routine 08/02/2024 6:30 AM EDT Chronic obstructive pulmonary disease, unspecified (CMS/HCC) BASIC METABOLIC PANEL Routine 08/02/2024 6:30 AM EDT Chronic obstructive pulmonary disease, unspecified (CMS/HCC) documented in this encounter Results * (ABNORMAL) Basic metabolic panel (08/02/2024 6:30 AM EDT) Sodium 139 133 - 145 mmol/L LAB CHEMISTRY METHOD 08/02/2024 9:51 AM [facility] Potassium 4.2 3.5 - 5.5 mmol/L LAB CHEMISTRY METHOD 08/02/2024 9:51 AM [facility] Chloride 106 96 - 110 mmol/L LAB CHEMISTRY METHOD 08/02/2024 9:51 AM [facility] CO2 29 21 - 32 mmol/L LAB CHEMISTRY METHOD 08/02/2024 9:51 AM [facility] Anion Gap 4 3 - 11 LAB CHEMISTRY METHOD 08/02/2024 9:51 AM [facility] Glucose 148(H) 70 - 100 mg/dL LAB CHEMISTRY METHOD 08/02/2024 9:51 AM [facility] BUN 12 5 - 25 mg/dL LAB CHEMISTRY METHOD 08/02/2024 9:51 AM [facility] Creatinine 1.05 0.50 - 1.10 mg/dL LAB CHEMISTRY METHOD 08/02/2024 9:51 AM [facility] eGFR 61 >=60 mL/min/1. 73m2 LAB CHEMISTRY METHOD 08/02/2024 9:51 AM [facility] Comment:Calculation based on the Chronic Kidney Disease Epidemiology Collaboration (CKD-EPI) equation refit without adjustment for race. BUN/Creatinine Ratio 11.4 LAB CHEMISTRY METHOD 08/02/2024 9:51 AM EDT [facility] Calcium 9.7 8.5 - 10.5 mg/dL LAB CHEMISTRY METHOD 08/02/2024 9:51 AM [facility] Blood Venous blood specimen / Unknown Venipuncture / Unknown 08/02/2024 6:30 AM EDT 08/02/2024 9:01 AM EDT us Hong Gibbs MD LAB BLOOD ORDERABLES Final Resul t [facility] [address] [place] [address], [place] [phone] * (ABNORMAL) Complete blood count (08/02/2024 6:30 AM EDT) WBC 7.4 4.8 - 10.8 K/mcL LAB HEMETOLOGY METHOD 08/02/2024 9:20 AM [facility] RBC 5.00(H) 3.80 - 4.80 M/mcL LAB HEMETOLOGY METHOD 08/02/2024 9:20 AM [facility] Hemoglobin 15.0 11.5 - 16.0 g/dL LAB HEMETOLOGY METHOD 08/02/2024 9:20 AM [facility] Hematocrit 45.4 35.0 - 47.0 % LAB HEMETOLOGY METHOD 08/02/2024 9:20 AM EDT [facility] MCV 91.0 79.0 - 98.0 FL LAB HEMETOLOGY METHOD 08/02/2024 9:20 AM [facility] MCH 30.1 27.0 - 32.0 pcg LAB HEMETOLOGY METHOD 08/02/2024 9:20 AM [facility] MCHC 33.0 32.0 - 37.0 g/dL LAB HEMETOLOGY METHOD 08/02/2024 9:20 AM EDT [facility] RDW 12.7 11.0 - 15.0 % LAB HEMETOLOGY METHOD 08/02/2024 9:20 AM EDT [facility] Platelets 292 130 - 400 K/mcL LAB HEMETOLOGY METHOD 08/02/2024 9:20 AM EDT [facility] MPV 11.5(H) 7.0 - 11.0 FL LAB HEMETOLOGY METHOD 08/02/2024 9:20 AM EDT [facility] NRBC 0.0 <1.0 % LAB HEMETOLOGY METHOD 08/02/2024 9:20 AM EDT [facility] NRBC Absolute 0.00 <0.10 K/mcL LAB HEMETOLOGY METHOD 08/02/2024 9:20 AM EDT [facility] Blood Venous blood specimen / Unknown Venipuncture / Unknown 08/02/2024 6:30 AM EDT 08/02/2024 9:01 AM EDT us Hong Gibbs MD LAB BLOOD ORDERABLES Final Resul t [facility] [address] [place] [address], documented in this encounter Visit Diagnoses Diagnosis Chronic obstructive pulmonary disease, unspecified (CMS/HCC V24, CMS/HCC V28) documented in this encounter Care Teams Cane Furniture Maker Relationship Specialty Start Date End Date Hong Gibbs MD [address] [place] [address], [phone] PCP - General Family Medicine 06/18/24 documented as of this encounter
--- OUTSIDE RECORDS SUMMARY | 2025-02-27 15:49 | XMS_ITS | Encounter Summary ---
Author Organization [facility] Address [address] [place] [address] Care Team Providers Care Wood Heel Cementer Name Role Phone Hong Gibbs MD Primary Care Provider [phone] Encounter Details Date Type Department Care Team (Late Contact Info) Description 04/10/2024 Lab Requisition [facility] - Main Lab 299 [facility] [place] [phone] Claudia Sterling MD [address] [place] [address] Hyperlipidemia, unspecified Social History Tobacco Use Types [...] AM EDT Office Visit Orthopedic Surgery - [place] 175 [facility] [address] [place] [phone] Digna Butler MD [address] [place] [phone] documented as of this encounter Procedures Procedure [...] D 25 hydroxy (04/10/2024 5:56 AM EST) Pathologist [facility] Vit D, 25-Hydroxy 43.5 30.0 - 80.0 ng/mL LAB CHEMISTRY METHOD 04/10/2024 10:20 AM EST [facility] Blood Venous blood specimen / Unknown Venipuncture / Unknown 04/10/2024 5:56 AM EST 04/10/2024 9:20 AM EST us Claudia Sterling MD LAB BLOOD ORDERABLES Final Resul t Performing Organization Address City/[facility]/ZIP Co de Phone Number [facility] [address] [place] [address], [place] [phone] * Thyroid stimulating hormone (04/10/2024 5:56 AM EST) Pathologist [facility] TSH 1.55 0.40 - 4.00 mcIU/mL LAB CHEMISTRY METHOD 04/10/2024 10:20 AM EST [facility] Blood Venous blood specimen / Unknown Venipuncture / Unknown 04/10/2024 5:56 AM EST 04/10/2024 9:20 AM EST us Claudia Sterling MD LAB BLOOD ORDERABLES Final Resul t [facility] [address] [place] [address], [place] [phone] * Folate (04/10/2024 5:56 AM EST) Folate 7.3 2.8 - 17.0 ng/ml LAB CHEMISTRY METHOD 04/10/2024 11:13 AM EST [facility] Blood Venous blood specimen / Unknown Venipuncture / Unknown 04/10/2024 5:56 AM EST 04/10/2024 9:20 AM EST Claudia Sterling MD LAB BLOOD ORDERABLES Final Resul t [facility] [address] [place] [address], [place] [phone] * Vitamin B12 (04/10/2024 5:56 AM EST) Pathologist [facility] Vitamin B-12 314 250 - 900 pcg/mL LAB CHEMISTRY METHOD 04/10/2024 11:13 AM EST [facility] Blood Venous blood specimen / Unknown Venipuncture / Unknown 04/10/2024 5:56 AM EST 04/10/2024 9:20 AM EST us Claudia Sterling MD LAB BLOOD ORDERABLES Final Resul t [facility] [address] [place] [address], [place] [phone] documented in this encounter Visit Diagnoses Diagnosis Hyperlipidemia, unspecified documented in this encounter Care Teams Wood Heel Cementer Relationship Specialty Start Date End Date Hong Gibbs MD [address] [place] [address], [phone] PCP - General Family Medicine 06/18/24 documented as of this encounter
--- OUTSIDE RECORDS SUMMARY | 2025-02-27 15:49 | XMS_ITS | Encounter Summary ---
Author Organization [facility] Address [address] [place] [address] Care Team Providers Care Senior Investment Analyst Name Role Phone Hong Gibbs MD Primary Care Provider [phone] Encounter Details Date Type Department Care Team (Late st Contact Info) Description 12/06/2024 Lab Requisition [facility] - Main Lab [address] [place] [address] Hong Gibbs MD 38 [facility] [address] [place], [phone] Chronic obstructive pulmonary disease, unspecified (CMS/HCC [...] AM EDT Office Visit Orthopedic Surgery - [place] 175 [facility] [address] [place] [address] Digna Butler MD [address] [place] [phone] documented as of this encounter Procedures Procedure Name Priority Date/Time Associated Diagnosis Comments MICROALBUMIN CREATININE URINE RATIO Routine 12/06/2024 12:00 AM EDT Chronic obstructive pulmonary disease, unspecified (CMS/HCC V24, CMS/HCC V28) documented in this encounter Results * Microalbumin creatinine urine ratio (12/06/2024 12:00 AM EDT) Creatinine, Urine 27.0 mg/dL LAB CHEMISTRY METHOD 12/06/2024 11:20 AM EDT [facility] Microalb, Ur <5.0 0.0 - 29.0 mg/L LAB CHEMISTRY METHOD 12/06/2024 11:20 AM EDT [facility] Microalb/Creat Ratio <19 <30 mg/g creat LAB CHEMISTRY METHOD 12/06/2024 11:20 AM EDT [facility] Urine Urine specimen obtained by clean catch procedure / Unknown 12/06/2024 12/06/2024 9:55 AM EDT us Hong Gibbs MD LAB URINE ORDERABLES Final Resul t [facility] [address] [place] [address], documented in this encounter Visit Diagnoses Diagnosis Chronic obstructive pulmonary disease, unspecified (CMS/HCC V24, CMS/HCC V28) documented in this encounter Care Teams Senior Investment Analyst Relationship Specialty Start Date End Date Hong Gibbs MD [address] [place] [address], [phone] PCP - General Family Medicine 06/18/24 documented as of this encounter
== END 2025-02-27 12:36 | disposition home or self-care (01) ==
LOC: HO.NEURO 12:35
PROVIDERS: Visit Provider Physician Assistant
DX: G56.21 Lesion of ulnar nerve, right upper limb (principal)
CPT/HCPCS: 95886; 95909

== ENCOUNTER → 2025-02-27 13:05 | Outpatient (BNV) | payer MEDICAID, SELFPAY | PROVIDERS: Visit Provider Physical Medicine & Rehabilitation | DX: R20.0 Anesthesia of skin (principal) | CPT/HCPCS: 95886; 95909 ==

== ENCOUNTER 2025-04-01 10:47 | Outpatient (AMB) | payer MEDICAID, SELFPAY ==
[2025-04-01 10:53] VITALS: BP 108/67; PULSE 82; O2SAT 96; BMI 32.3
--- NOTE | 2025-04-01 10:53 | MHC.OFFVIS ---
Vital Signs 04/01/25 10:53 Height 5 ft 6 in Weight 200 lb BMI 32.3 BP 108/67 Blood Pressure Location Rt brachial Position Sitting Pulse 82 Pulse Source Pulse Oximeter Pulse Oximetry (%) 96 Oxygen Delivery Method Room Air Intake Visit Reasons: Sarcoidosis Allergies onion Allergy (Unknown, Verified 04/01/25 11:01) Unknown HPI HPI Sarcoidosis: Details: 59-year-old lady with underlying history of asthma previously seen by Dr. Murry, now followed for diagnosis of sarcoidosis on mediastinoscopy and mediastinal lymph node biopsy.? Patient continues on Breo, Spiriva, and albuterol MDI with good control of underlying symptoms. Patient denies any recent exacerbations. Review of Systems Const Denies daytime sleepiness, Denies excessive sweating, Denies fatigue, Denies fever(s), Denies lethargy, Denies malaise, Denies night sweats, Denies snoring and Denies weight loss Eyes Denies blurry vision and Denies itchy eyes ENT Denies nasal congestion, Denies post nasal drip, Denies sinus pain, Denies sinus pressure and Denies other ( Thrush) Card Denies chest pain, Denies pedal edema, Denies dyspnea, Denies orthopnea and Denies paroxysmal nocturnal dyspnea Resp Denies cough, Denies hemoptysis, Denies excessive phlegm production, Denies dyspnea, Denies snoring and Denies wheezing GI Denies abdominal pain and Denies heartburn Musc Denies myalgias, Denies arthralgias and Denies joint swelling Skin/Breast Denies rash Neuro Denies memory loss and Denies seizure-like activity Psych Denies abnormal sleep pattern, Denies anxiety and Denies memory loss Endo Denies excessive sweating, Denies fatigue and Denies heat intolerance Nacho/Lymph Denies easy bruising Aller/Immun Denies itchy eyes, Denies seasonal rhinorrhea and Denies wheezing Physical Exam Vital Signs: Last Vital Signs Pulse 82 04/01/25 10:53 BP 108/67 04/01/25 10:53 Pulse Ox 96 04/01/25 10:53 Oxygen Delivery Method Room Air 04/01/25 10:53 BMI result Body Mass Index 32.3 Const General: no acute distress and alert Nutritional Appearance: not obese Orientation/consciousness: Other orientation findings ( oriented) HEENT Head: Yes atraumatic Eyes General: appearance normal, both eyes and all related structures Sclerae: sclerae normal EOM: EOMs intact bilaterally Neck Neck: Yes supple Lymphatic: no lymphadenopathy noted Resp Effort & Inspection: normal respiratory effort and no use of accessory muscles Auscultation: clear to auscultation bilaterally Cardio Rate: regular rate Rhythm: regular rhythm Heart sounds: no gallops, no murmurs and no rubs Skin General skin exam: other ( warm) Extrem General: No clubbing, No cyanosis and No edema Assessment & Plan Assessment & Plan (1) Sarcoidosis: Code(s): D86.9 - Sarcoidosis, unspecified Category: Medical Plan: No recent exacerbations. Continue to monitor clinically. Recent normal eye exam. (2) Asthma: Code(s): J45.909 - Unspecified asthma, uncomplicated Category: Medical Plan: Well controlled on Breo, Spiriva, and albuterol MDI. Continue current regimen. (3) Allergic rhinitis: Code(s): J30.9 - Allergic rhinitis, unspecified Category: Medical Plan: Controlled on as needed Flonase. Continue current regimen. Coding Level of Care Code Est Pt Level 4 (45894) Complex EM visit Add On G2211 Diagnoses Sarcoidosis D86.9 Asthma J45.909 Allergic rhinitis J30.9
--- OUTSIDE RECORDS SUMMARY | 2025-04-01 22:17 | XMS_ITS | Data Portability ---
Author Organization [facility], Main Office Address [address] [facility], [facility] [address] [place] [address] Care Team Providers Care Special Crimes Investigator Name Role Phone [facility] OTHER Assessment Encounter Date Assessment Date Assessment LastModified by Organization Details LastModified Time 12/03/2024 12/03/2024 Allergies: Bee pollen / royal jelly, Onions [email or web address] Not available 12/03/2024 09:38:38 Plan of Treatment Reminders Order Date Submit [...] Name and Address Organization Details Recorded Time Hyperlipid emia 54067826 Active 2023 Not Available [facility] 14:30:12 Diarrhea 49296763 Completed 202306/25/2024 Not Available [facility] 14:28:32 Type 2 diabetes mellitus without complicati on 686963094 Active 2023 Not Available [facility] 09:48:28 Anxiety disorder 505385036 Active 2023 Not Available [facility] 09:48:29 Obesity 334294442 Completed 202306/07/2024 Not Available [facility] 09:48:31 Difficulty walking 784412911 Active 2023 Not Available [facility] 5 14:30:48 Uncomplica charley asthma 544751349 Active 2023 Not Available [facility] 5 09:48:33 Disorder of nervous system due to type 2 diabetes mellitus 834316273 Active 2023 Not Available [facility] 5 09:48:33 Depressive disorder 67684844 Active 2023 Not Available [facility] 5 09:48:34 Disease caused by Coronaviri hermelinda 86483950 Active 2023 Not Available [facility] 5 09:48:35 Muscle weakness 74938315 Active 2023 Not Available [facility] 5 14:29:35 Obesity 281129021 Active 2023 Not Available [facility] 5 09:48:32 Recurrent major depression 33339201 Active 2023 Not Available [facility] 5 09:48:27 Primary insomnia 7184168 Active 2023 Not Available [facility] 5 09:48:31 Chronic obstructiv e pulmonary disease 95803467 Active 2024 CHAKA [place] [address] [facility], [address], [place], [address] , [facility] 5 15:25:46 Asthma 039594063 Active 2024 CHAKA [place]RE [address] , [address], [place], [address] , [facility] 5 15:25:54 Diabetes mellitus 40119313 Active 2024 CHAKA BELTRE [address] , [address], [place], [address] , [facility] 5 15:26:12 Neuropathy 477642861 Active 2024 CHAKA [place]RE [address] , [address], [place], [address] , [facility] 5 15:27:11 Essential tremor 685227194 Active 2024 CHAKA BELTRE [address] [facility], [address], [place], [address] , [facility] 5 15:27:41 Post-luz marina ectomy syndrome 73191718 Active 2024 CHAKA BELTRE [address] [facility], [address], [place], [address] , [facility] 5 15:29:52 Neuralgia 14831553 Active 2024 CHAKA BELTRE [address] [place] [address], [address], [place], [address] , [facility] 5 15:33:29 Mixed anxiety and depressive disorder 602986669 Active 2024 CHAKA BELTRE [address] [place] [address], [address], [place], [address] , [facility] 5 15:36:49 Pain of joint of wrist 121713382 Active 2024 Not Available [facility] 5 11:48:38 Polyneurop athy 31059928 Active 2024 Not Available [facility] 5 11:50:23 Problem Notes None recorded. Medical Equipment None Reported. Allergies Allergen ID Allergen Name Allergen Category Reaction Reaction Severity Criticality Documentation Date Start Date Code Code System Note Provider Name and Address Organization Details Recorded Time 64232 onion extract food,medi cation Not available Not available Not available 05/25/2024 98315 69 RxNorm CHAKA BELTRE [address] [facility], [address], [place], [address], [facility] 5 19:21:49 52461 honey bee venom environme nt anaphylax is Not available high 03/15/20252016 80424 7 RxNorm Not Available kady - External Data Service - prod 5 16:19:23 Medications Name Sig Start Date Stop Date Status Note LastModified by Organization Details LastModified Time atorvastati n 40 mg tablet Give 1 tablet by mouth one time a day 2023 active Not Available Not Available Not Avai lable primidone 50 mg tablet Give 1 tablet by mouth three times a day 2023 active Not Available Not Available Not Avai lable acetaminoph en 325 mg tablet Give 650 mg by mouth every 8 hours as needed for Mild Pain;Elev ated Temperatu re Not to exceed 3gm APAP with percocet 2024 active Not Available Not Available Not Avai lable gabapentin 600 mg tablet Give 1200 mg by mouth two times a day for pain for 2 Weeks 12/18 completed Not Available Not Available Not Available albuterol sulfate 1.25 mg/3 mL solution for nebulizatio n 1 vial inhale orally via nebulizer every 6 hours as needed for Wheeze 2023 active Not Available Not Available Not Avai lable prednisone 20 mg tablet Give 2 tablet by mouth one time a day Give two 20mg tab for a total of 40mg daily x 7 days. 2024 active Not Available Not Available Not [...] by mouth three times a day for pain Do not exceed 3 gram per/24hr. 2024 active Not Available Not Available Not Avai lable Zofran ODT 4 mg disintegrat ing tablet Give 4 milligram orally every 6 hours as needed for nausea 2024 active Not Available Not Available Not [...] completed Not Available Not Available Not Available Percocet 5 mg-325 mg tablet Give 1 tablet by mouth every 6 hours as needed for Pain 2024 active Not Available Not Available Not Avai lable Wellbutrin XL 300 mg 24 hr tablet, [...] Not Available Not Available Not Avai lable Lyrica 75 mg capsule Give 75 mg by mouth two times a day for Pain for 2 Weeks give 75mg for two weeks then increase. 12/18 completed Not Available Not Available Not Available Lyrica 150 mg capsule Take 1 capsule twice a day by oral route as directed. 2024 active Not Available Not Available Not Avai lable epinephrine 0.3 mg/0.3 mL injection syringe Inject 0.3 ml intramusc ularly as needed for ANAPHYLAX IS ADMINISTE R X1 NEEDED 2023 active Not Available Not Available Not Avai lable Comfort Pac-tizanid ine 4 mg tablet and topical gel kit Give 4 mg by mouth every 12 hours as needed for pain for 30 Days Re-eval in 30days. 12/20 completed Not Available Not Available Not Available sodium phosphates 19 gram-7 gram/197 mL enema [...] subcutane ously one time a day every Sat for diabetes AND Inject 1.5 mg subcutane ously one time only for diabetes for 1 Day 2024 active Not Available Not Available Not Avai lable Aleve (diclofenac ) 1 % topical gel Apply to Neck topically two times a day for pain apply 2 grams topically 2024 active Not Available Not Available Not Avai lable Vitals None Recorded Social History None recorded. Functional Status None recorded. Mental Status None recorded. Family History Nothing Reported. Medical History No medical history recorded. Gynecological HistoryNo gynecological history recorded. Obstetrics History GPAL:G 0 P 0 0 0 0 Past Encounters Encounter ID Performer Location Encounter Start Date Encounter Closed Date Diagnosis/Indication Diagnosis SNOMED-CT Code Diagnosis ICD10 Code Diagnosis IMO Codes Diagnosis Note [id number] [place] [address] 05/25/2024 17:53:11 05/30/2024 08:06:36 Neuralgia 14714059 M79.2 Right occipital neuralgiaf /u with neurology prnadd cold compressed 15min a few times dailyconti nue topamax Chronic ob structive pulmonary disease 82160112 J44.9 Continue ProAir, albuterol nebulizer treatments , Spiriva Diabetes mellitus 455580 09 E11.9 Continue Trulicity, Jardiance, SSC Mixed anxi ety and depressive disorder 947828944 F41.8 continue Bupropion, Duloxetine ,Clonazepa m, lamictalla mictal recently increased to 50 mg BID pt reported sx associated with increased. Med decreased back to 25 mg BID, will monitor for resolution . Asthma 485221407 J45.90 9 albuterol prn Hyperlipidemia 80429902 E78.5 continue lipitorfol low labs Neuropathy 664257002 G62 .9 continue gabapentin , tizanidine Essential tremor 9613292 09 G25.0 continue primidone TID Post-luz marina ectomy syndrome 77739920 M96.1 see above meds. [id number] [place] [address] 07/28/2024 08:44:27 08/02/2024 15:57:34 Neuralgia 86649712 M79.2 Right occipital neuralgiaf /u with neurology prncontinu e topamaxmon itor Chronic ob structive pulmonary disease 97667553 J44.9 no acute exacerbati onsContinu e ProAir, albuterol nebulizer treatments , Spiriva Diabetes mellitus 003143 09 E11.9 very well controlled Continue Trulicity, Jardiance, SSC Mixed anxi ety and depressive disorder 528974870 F41.8 continue Bupropion, Duloxetine ,Clonazepa m, lamictalla mictal 25 mg BID, will monitor for resolution . Asthma 969101060 J45.90 9 albuterol prn Hyperlipidemia 57785625 E78.5 continue lipitorfol low labs Neuropathy 672318329 G62 .9 continue gabapentin , tizanidine Essential tremor 8274426 09 G25.0 continue primidone TID Post-luz marina ectomy syndrome 50036664 M96.1 see above meds. Ankle edema 32244138 R60 .0 new left ankle swellingno redness warmth or paindo not suspect gout, cellulitis or dvtvery faintly swollen over ankle boneelevat e and monitor for improvemen [place] [id number] [place] [address] 08/01/2024 13:17:25 08/07/2024 08:13:53 Neuralgia 13056096 M79.2 Right occipital neuralgiaf /u with neurology prncontinu e topamaxmon itor Diabetes mellitus 062951 09 E11.9 very well controlled Continue Trulicity, Jardiance, SSC Mixed anxi ety and depressive disorder 170545738 F41.8 continue Bupropion, Duloxetine ,Clonazepa m, lamictalla mictal 25 mg BID, will monitor for resolution . Hyperlipidemia 01282816 E78.5 continue lipitorfol low labs Neuropathy 453680883 G62 .9 continue gabapentin , tizanidine Essential tremor 0155356 09 G25.0 continue primidone TID Post-luz marina ectomy syndrome 17770970 M96.1 see above meds. Fatigue 53355629 R53.83 Will get CBC and BMPWill try to connect with psych for review of psych meds [id number] [place] [address] 08/09/2024 12:04:44 08/09/2024 15:32:11 Neck pain 68214622 M54.2 this is not a new issue, ongoing problemalr steph on gabapentin 1200 mg tidwas on oxy at home per her reportshe has an upcoming apt with physiatry on schedule tylenol 1000 mg tidcontinu e ibuprofen 400 mg q6h prn for breakthrou gh painreport s allergy to lidocaine patchstart diclofenac ointment bidmonitor pain and f/up with physiatry recs [id number] MEGAN HU NP [facility] [address] [place] [address] 08/17/2024 11:06:57 08/20/2024 11:34:56 Neuralgia 18223246 M79.2 Right occipital neuralgiaf /u with neurology prncontinu e topamaxmon itor Diabetes mellitus 309274 09 E11.9 very well controlled Continue Trulicity, Jardiance, SSCFBS today 155 Mixed anxi ety and depressive disorder 766679695 F41.8 continue Bupropion, Duloxetine ,Clonazepa m, lamictalla mictal 25 mg BID, will monitor for resolution . Neuropathy 481916332 G62 .9 continue gabapentin , tizanidine Essential tremor 2833462 09 G25.0 continue primidone TID Post-luz marina ectomy syndrome 78458664 M96.1 see above meds. [id number] NAYAN [place] [address] [place] [address] 09/17/2024 13:57:13 09/19/2024 07:12:06 Neuralgia 97541358 M79.2 Right occipital neuralgiaf /u with neurology prncontinu e topamaxmon itor Chronic ob structive pulmonary disease 97222474 J44.9 no acute exacerbati onsContinu e ProAir, albuterol nebulizer treatments , Spiriva Diabetes mellitus 492159 09 E11.9 very well controlled Continue Trulicity, Jardiance, SSC Mixed anxi ety and depressive disorder 448061877 F41.8 continue Bupropion, Duloxetine ,Clonazepa m, lamictalla mictal 25 mg BID, will monitor for resolution . Asthma 780301810 J45.90 9 albuterol prn Essential tremor 9951074 09 G25.0 continue primidone TID Post-luz marina ectomy syndrome 99618351 M96.1 Patient states she is seeing a neurosurge on tomorrow. Monitor. [id number] NAYAN [place] [address] [place] [address] 09/19/2024 13:04:07 09/25/2024 13:57:54 Neuralgia 83774742 M79.2 Right occipital neuralgiaf /u with neurology prncontinu e topamaxmon itor Diabetes mellitus 218567 09 E11.9 very well controlled Continue Trulicity, Jardiance, SSC Mixed anxi ety and depressive disorder 263402471 F41.8 continue Bupropion, Duloxetine ,Clonazepa m, lamictalla mictal 25 mg BID, will monitor for resolution . Essential tremor 7018555 09 G25.0 continue primidone TID Post-luz marina ectomy syndrome 01278470 M96.1 Seen by neurosurge on with no recommenda tion for surgery. Monitor. [id number] NAYAN [address]RIOS [address] [place] [address] 10/10/2024 13:39:29 10/12/2024 14:39:31 Neuralgia 56262479 M79.2 Right occipital neuralgiaf /u with neurology prncontinu e topamaxmon itor Diabetes mellitus 034226 09 E11.9 very well controlled Continue Trulicity, Jardiance, SSC Mixed anxi ety and depressive disorder 751007538 F41.8 continue Bupropion, Duloxetine ,Clonazepa m, lamictalla mictal 25 mg BID, will monitor for resolution . Essential tremor 5283255 09 G25.0 continue primidone TID Post-luz marina ectomy syndrome 14567651 M96.1 Seen by neurosurge on with no recommenda tion for surgery .Cortisone injections given which is causing her pain today. Continue with tylenol and Monitor. [id number] NAYAN [place] [place] [address] 10/19/2024 12:53:14 10/23/2024 09:18:50 Neuralgia 12868512 M79.2 Right occipital neuralgiaf /u with neurology prncontinu e topamaxmon itor Diabetes mellitus 878889 09 E11.9 very well controlled Continue Trulicity, Jardiance, SSCDecreas e blood sugars to weekly BID checks and monitor Mixed anxi ety and depressive disorder 389742351 F41.8 continue Bupropion, Duloxetine ,Clonazepa m, lamictalla mictal 25 mg BID, will monitor for resolution . Essential tremor 2398395 09 G25.0 continue primidone TID Post-luz marina ectomy syndrome 11982891 M96.1 Seen by neurosurge on with no recommenda tion for surgery .Cortisone injections given which is causing her pain today. Continue with tylenol and Monitor. [id number] NAYAN BERRIOS [address] [place] [address] 11/02/2024 15:14:49 11/09/2024 12:09:22 Seasonal allergy 723851813 J30.2 68354 Continue Diphedryl allergy 25 mg q 24 hours. [id number] MD EMETERIO Landin [address] [place] [address] 12/03/2024 09:36:02 12/15/2024 20:45:24 Mixed anxiety and depressive disorder 999208470 F41.8 continue Bupropion, Duloxetine ,Clonazepa m, lamictalla mictal recently increased to 50 mg BID pt reported sx associated with increased. Med decreased back to 25 mg BID, will monitor for resolution . Hyperlipidemia 43307207 E78.5 atorvastat in 40mg daily; for routine labs Essential tremor 2241225 09 G25.0 primidone 50mg TID Post-luz marina ectomy syndrome 61827951 M96.1 see above meds. 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 Jimenez with appointmen t today. Reports good control with no wheezing; sleep interrupti on primarily with pain Chronic pain syndrome 37 0819863 G89.4 31834 in the setting of degenerati ve spine and disc disease Right occipital neuralgia, appears to respond to injections (as well as ice) but also reports the LEFT side is becoming symptomati c.She related mid back pain which is worsening - episodic sudden nonradiati ng pain in the midback lasting for several minutes with no identifiab le triggers.R eports fragmented sleep secondary to pain followed by Dr. Borges; 12/31 follow-upc urrently on max doses of gabapentin /duloxetin e and is open to switching to lyricadisc ussed imaging to rule out other pathologie s continue tizanidine 4mg tid / ?topiramat e 50mg bid/ PRN Percocet (hardly used; last use yesterday) consider sleep study given comorbidit ies For resuscitation 699948 001 Z78.9 5172632 Type 2 kodi betes mellitus 94252141 E11.8 6516718 Jardiance 10mg daily, SSCnoted gradual weight loss but is off Trulicityo verdue for A1c ; ordered 12/01/2024 17:45 135.0 mg/dL [email or web address] (Manual) 07:51 132.0 mg/dL jprentice (Manual)04/2025 19:26 123.0 mg/dL lwatson (Manual)04/2025 08:02 127.0 mg/dL vsan (Manual)11/17/2024 17:06 163.0 mg/dL [email or web address] (Manual)11/17/2024 07:55 146.0 mg/dL jprentice (Manual) 18:06 98.0 mg/dL lwatson (Manual) 07:48 128.0 mg/dL jbreault (Manual) 17:57 134.0 mg/dL jstevens (Manual) 07:50 147.0 mg/dL 11/16/2024 13:36 198.6 Lbs Sitting vsan (Manual)10/17/2024 14:32 198.0 Lbs Sitting vsan (Manual)10/14/2024 16:04 201.3 Lbs Sitting vsan (Manual)09/18/2024 08:00 202.2 Lbs Sitting lragion (Manual)09/17/2024 13:52 209.0 Lbs Sitting jprentice (Manual)09/15/2024 13:49 198.9 Lbs Abnormal gait 63838635 R 26.9 71402 fall risk sec to impaired sensation likely sec to diabetic neuropathy or sequela of previous neurosurge rywheelcha ir primarily History of malignant neoplasm of breast 290587753 Z85.3 400042 Health Concerns Section Related Observation LastModified by Organization Detai ls LastModified Time None Recorded Concern Status LastModified by Organization Details LastModified Time None Recorded Advance Directives Directive None Recorded Payers Insurance Date Sequence Insurance Name Policy Number Policy Pandya Covered Member ID Pandya Member ID Guarantor Name 12/15/2024 1 [place] [facility] [address] Cali Rabago [id number] Cali Rabago Notes Date Note Type Note Provider Name and Address Organization Details Recorded Time 09/19/2024 text/html ROS as noted in the HPI This is a 58 yr old female seen for acute rounding visit. She c/o increased headache and neck pain that radiates. She went to a neuro-surgical consult. MRI shows degenerative changes but not a surgical problem. F/U with neurosurgery as needed. Today she is in wheelchair and is smiling with no s/s of pain. 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 MEGAN HU NP [address] [facility], [address], [place], [address], [facility] 09/19/2024 14:15:38 10/10/2024 text/html ROS as noted in the HPI This is a 58 yr old female seen for acute rounding visit. She c/o increased headache and neck pain that radiates. She went to a neuro-surgical consult. MRI shows degenerative changes but not a surgical problem. She had cortisone injections done to her upper back, right arm and right neck pain. Today she is having pain which the MD explained would happen and would last for a few days. 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 MEGAN HU NP [address] [facility], [address], [place], [address], [facility] 10/10/2024 21:16:26 10/19/2024 text/html Seen today for review of diabetes. I reviewing her blood sugars, they are mostly between 100-200. Will reduce fingersticks and monitor. She is alert and in NAD. MEGAN HU NP [address] [facility], [address], [place], [address], [facility] 10/19/2024 21:10:20 11/02/2024 text/html Patient was seen today by request of nurse for a hoarse voice. On exam her throat was normal in appearance. She states she gets this when allergies are bad for her. She feels her allergies are being treated adequately. 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 Allergies: Bee pollen / royal jelly, Onions Donta Jj MD [address] [facility], [address], [place], [address], [facility] 12/03/2024 12:38:45 OBGyn Episode No OBEpisode recorded.
== END 2025-04-01 11:13 | disposition home or self-care (01) ==
LOC: HO.HPS 10:48
PROVIDERS: PCP Student in an Organized Health Care Education/Training Program; Visit Provider Internal Medicine Pulmonary Disease
DX: D86.9 Sarcoidosis, unspecified (principal); J45.909 Unspecified asthma, uncomplicated; J30.9 Allergic rhinitis, unspecified
CPT/HCPCS: 99214

== ENCOUNTER → 2025-04-01 10:47 | Outpatient (BNVA) | payer MEDICAID, SELFPAY | PROVIDERS: PCP Student in an Organized Health Care Education/Training Program; Visit Provider Internal Medicine Pulmonary Disease | DX: J45.909 Unspecified asthma, uncomplicated (principal); D86.9 Sarcoidosis, unspecified | CPT/HCPCS: 99212 ==